=== PATIENT | female | born 1940 | race Caucasian/White ===

== ENCOUNTER → 2018-04-26 12:07 | Outpatient (CLI) | payer MEDICARE, OTHER, SELFPAY ==
--- NOTE | 2018-04-26 | DI.MG.S_ITS ---
BILATERAL DIGITAL SCREENING MAMMOGRAM 3D/2D WITH CAD: 04/26/2018 CLINICAL: Routine screening. Comparison is made to exams dated: 04/25/2017 mammogram, 04/24/2016 mammogram, and 04/21/2015 mammogram - [facility]. There are scattered fibroglandular elements in both breasts. Current study was also evaluated with a Computer Aided Detection (CAD) system. There are benign vascular calcifications in both breasts. No significant masses, calcifications, or other findings are seen in either breast. There has been no significant interval change. IMPRESSION: BENIGN There is no mammographic evidence of malignancy. A 1 year screening mammogram is recommended. This exam was interpreted at Station ID: [id number]. NOTE: For mammograms, a report in lay terms will be sent to the patient. Approximately 15% of breast malignancies will not be visualized mammographically. In the management of a palpable breast mass, a negative mammogram must not discourage biopsy of a clinically suspicious lesion. Electronically Signed By: Ceci chandra/anthony:04/26/2018 15:03:49 letter sent: Normal Exam ACR BI-RADS Category 2: Benign Finding(s) 3342F
== END ==
PROVIDERS: Family Provider Family Medicine; PCP Family Medicine; Visit Provider Family Medicine
DX: Z12.31 Encounter for screening mammogram for malignant neoplasm of breast (principal)
CPT/HCPCS: 77063; 77067

== ENCOUNTER 2018-08-27 15:33 | Emergency (ER) | payer MEDICARE, OTHER, SELFPAY ==
--- NOTE | 2018-08-27 | DI.RAD.S_ITS ---
PROCEDURE: XR ANKLE RT MIN 3V INDICATIONS: FALL ANKLE PAIN TECHNIQUE: 3 views of the ankle were acquired. COMPARISON: [facility], , XR FOOT RT MIN 3V, 08/27/2018, 16:12. FINDINGS: Bones: There is a non-displaced fracture involving the distal fibular tip. No dislocations. Ankle mortise is normally aligned. No suspicious bony lesions. Soft tissues: No tibiotalar joint effusion. Achilles tendon appears normal. Soft tissue swelling over the lateral malleolus. Atherosclerotic calcification is noted. IMPRESSION: Nondisplaced fibular tip fracture. Dictated by: Jessie Heaton M.D. on 08/27/2018 at 17:07 Approved by: Jessie Heaton M.D. on 08/27/2018 at 17:08
[2018-08-27 15:39] VITALS: BP 152/78; PULSE 62; RESP 20; TEMP 36.4; O2SAT 95; BMI 28.2
--- NOTE | 2018-08-27 15:54 | DI.RAD.S_ITS ---
PROCEDURE: XR FOOT RT MIN 3V INDICATIONS: tripped and fell TECHNIQUE: 3 views of the foot were acquired. COMPARISON: [facility], CR, XR ANKLE RT MIN 3V, 08/27/2018, 16:12. FINDINGS: Bones: No fractures or dislocations. No suspicious bony lesions. Mild degenerative joint disease is present involving the first tarsometatarsal joint and moderate portal interphalangeal joints. Soft tissues: No tibiotalar joint effusion. Achilles tendon appears normal. Vascular calcifications consistent with atherosclerosis. IMPRESSION: No fracture or dislocation. Dictated by: Jessie Heaton M.D. on 08/27/2018 at 17:05 Transcribed by: FREDERIC on 08/27/2018 at 17:07 Approved by: Jessie Heaton M.D. on 08/27/2018 at 17:45
[2018-08-27 18:28] VITALS: PULSE 88
--- NOTE | 2018-08-27 18:33 | DI.RAD.S_ITS ---
PROCEDURE: XR KNEE LT 3V INDICATIONS: fall with knee pain TECHNIQUE: 3 views of the knee were acquired. COMPARISON: None. FINDINGS: Bones: No fractures or dislocations. No suspicious bony lesions. Soft tissues: No joint effusion. Vascular calcifications are noted. Anterior left knee soft tissue swelling noted. IMPRESSION: No acute fracture or dislocation of the left knee. Consider followup radiographs in 7-10 days if there is continued clinical concern. Dictated by: Roshan Crocker M.D. on 08/27/2018 at 19:54 Approved by: Roshan Crocker M.D. on 08/27/2018 at 19:56
[2018-08-27] MEDS: TRAMADOL 50 MG TABLET PO (18:45)
--- NOTE | 2018-08-27 19:44 | ED_ITS ---
HPI - Extremity Injury (Lower) <TONYA Arteaga - Last Filed: 08/27/18 22:23> General Chief Complaint: Extremity Injury, Lower Stated Complaint: LEFT KNEE, RT ANKLE PAIN S/P FALL Time Seen by Provider: 08/27/18 18:25 Source: patient and family Mode of arrival: ambulatory Limitations: no limitations History of Present Illness HPI Narrative: Patient is an 78-year-old female with history of hypertension hyperlipidemia and chronic kidney disease who presents with ankle pain and knee pain. She states she took a hard step and felt a crack in her right ankle and then set forward on her left knee. She denies hitting her head neck or back pain. She denies falling, but complains of the crack in her ankle when she took a step. She is not sure when her last tetanus was and complains of an abrasion on her left knee. She denies hitting her head, nausea, vomiting, diarrhea, chest pain or shortness of breath or abdominal pain. She denies any hip pain. Related Data Home Medications Medication Instructions Recorded Confirmed CALCIUM CARBONATE/VITAMIN D3 1 tab PO Q DAY #0 08/14/11 04/23/18 (Calcium 600 + Vit D Tablet) Previous Rx's Medication Instructions Recorded atorvastatin [Lipitor] 20 mg PO HS #90 tab 10/31/17 warfarin [Jantoven] 0 PO SEE INSTRUCTIONS #60 tab 11/06/17 nitrofurantoin macrocrystal 50 mg 50 mg PO QDAY #90 cap 03/26/18 capsule lisinopril 10 mg tablet 10 mg PO Q DAY #90 tab 07/29/18 tramadol 50 mg PO Q4-6H PRN #10 tab 08/27/18 Allergies Allergy/AdvReac Type Severity Reaction Status Date / Time Sulfa (Sulfonamide Allergy Mild RASH Verified 08/27/18 15:43 Antibiotics) [SULFA (SULFONAMIDE ANTIBIOTICS)] Review of Systems <TONYA Arteaga - Last Filed: 08/27/18 22:23> Review of Systems GENERAL: Denies chills, fatigue, malaise, fever, sweats. HEENT: Denies sinus pain, ear pain, sore throat, difficulty swallowing, dizziness. RESPIRATORY: Denies dyspnea, cough, wheezing, hemoptysis, sputum. CARDIOVASCULAR: Denies chest pain, palpitations, orthopnea, edema, GASTROINTESTINAL: Denies nausea, vomiting, abdominal pain, diarrhea, constipation, melena. : Denies dysuria, frequency, incontinence, hematuria, urinary retention. MUSCULOSKELETAL: See HPI SKIN: See HPI NEUROLOGIC: Denies weakness, headache, numbness, change in speech, confusion, seizures, incoordination. PSYCHIATRIC: No concerning psychosocial issues. 12 point review of systems is negative except for those stated above Exam <JEN ArteagaBC - Last Filed: 08/27/18 22:23> Narrative Exam Narrative: GENERAL: This is a well-nourished, well-developed patient, in mild distress. HEAD: Atraumatic. Normocephalic. No temporal or scalp tenderness. EYES: Pupils equal round and reactive. Extraocular motions intact. No scleral icterus. No injection or drainage. ENT: Nose without bleeding, purulent drainage or septal hematoma. Throat without erythema, tonsillar hypertrophy or exudate. Uvula midline. Airway patent. NECK: Trachea midline. No JVD or lymphadenopathy. Supple, nontender, no meningeal signs. CARDIOVASCULAR: Regular rate and rhythm without murmurs, gallops, or rubs. RESPIRATORY: Clear to auscultation. Breath sounds equal bilaterally. No wheezes , rales, or rhonchi. GASTROINTESTINAL: Abdomen soft, non-tender, nondistended. No hepato-splenomegaly , or palpable masses. No guarding. EXTREMITIES: Pain to palpation noted right ankle. Positive pedal pulses right foot. No noted edema erythema or ecchymosis right ankle. Decreased flexion and extension supination and pronation of the right foot. Pain to palpation left knee generalized. Positive pedal pulses left foot. BACK: Nontender without deformity or crepitance. No flank tenderness. NEURO: AOx3. SKIN: A 3 cm abrasion noted patella of left knee. Ecchymosis surrounding abrasion. No noted abrasion, laceration ecchymosis or edema noted right ankle. Initial Vital Signs Initial Vital Signs: Vital Signs Temperature 97.5 F L 08/27/18 15:39 Pulse Rate 62 08/27/18 15:39 Respiratory Rate 20 08/27/18 15:39 Blood Pressure 152/78 H 08/27/18 15:39 Pulse Oximetry 95 08/27/18 15:39 <Mary Nicole DO - Last Filed: 08/28/18 03:34> Initial Vital Signs Initial Vital Signs: Vital Signs Temperature 97.5 F L 08/27/18 15:39 Pulse Rate 62 08/27/18 15:39 Respiratory Rate 20 08/27/18 15:39 Blood Pressure 152/78 H 08/27/18 15:39 Pulse Oximetry 95 08/27/18 15:39 Course <TONYA Arteaga - Last Filed: 08/27/18 22:23> Orders Ordered: Discontinued Medications Cyclobenzaprine HCl (Flexeril) 10 mg PO NOW ONE Stop: 08/27/18 20:22 Last Admin: 08/27/18 21:03 Dose: 10 mg Diphtheria/Tetanus/Acell Pertussis (Adacel) 0.5 ml IM .ONCE ONE Stop: 08/27/18 21:05 Last Admin: 08/27/18 21:05 Dose: 0.5 ml Tramadol HCl (Ultram) 50 mg PO NOW ONE Stop: 08/27/18 18:34 Last Admin: 08/27/18 18:45 Dose: 50 mg Vital Signs - 8 hr 08/27/18 21:09 Pulse Rate 70 Respiratory Rate 17 Blood Pressure [Right Arm] 124/78 Pulse Oximetry 99 <Mary Nicole DO - Last Filed: 08/28/18 03:34> Orders Ordered: Discontinued Medications Cyclobenzaprine HCl (Flexeril) 10 mg PO NOW ONE Stop: 08/27/18 20:22 Last Admin: 08/27/18 21:03 Dose: 10 mg Diphtheria/Tetanus/Acell Pertussis (Adacel) 0.5 ml IM .ONCE ONE Stop: 08/27/18 21:05 Last Admin: 08/27/18 21:05 Dose: 0.5 ml Tramadol HCl (Ultram) 50 mg PO NOW ONE Stop: 08/27/18 18:34 Last Admin: 08/27/18 18:45 Dose: 50 mg Vital Signs - 8 hr 08/27/18 21:09 Pulse Rate 70 Respiratory Rate 17 Blood Pressure [Right Arm] 124/78 Pulse Oximetry 99 MDM - Extremity Injury (Lower) <TONYA Arteaga - Last Filed: 08/27/18 22:23> Imaging Data right ankle xray : Radiologist's impression: Chart Viewer Diagnostics DATE TYPE STATUS AUTHOR Hx 08/27/18 18:33 ObiRoshan 08/27/18 15:54 Sherlyn Heaton 08/27/18 00:00 Sherlyn Heaton 04/26/18 00:00 Ceci Andre Nancy N 78, F0 1940 DEP ER, ED - Main ED: [place] 167.64cm 79.379kg BSA: 1.89m? BMI: 28.2kg/m? Extremity Injury, Lower Search Chart NF - Not included in interaction checking Sulfa (Sulfonamide Antibiotics) (SULFA (SULFONAMIDE ANTIBIOTICS)) RASH ONSET 08/14/11 08/14/11 03/05/13 09/13/16 09/13/16 Today 21:[address] [address] XRay Report Signed Patient: Radha Plaza [facility]#: [id number] : 8Acct:[id number] Age/Sex: 78 / FDate of Service: 08/27/18 Loc: ED Accession Number: [id number] Procedure: XR ankle RT min 3V Ordering Provider: FARIBA Plaza PROCEDURE: XR ANKLE RT MIN 3V INDICATIONS: FALL ANKLE PAIN TECHNIQUE: 3 views of the ankle were acquired. [facility] 08/[facility]/2018, 16:12. FINDINGS: Bones: There is a non-displaced fracture involving the distal fibular tip. No dislocations. Ankle mortise is normally aligned. No suspicious bony lesions. Soft tissues: No tibiotalar joint effusion. Achilles tendon appears normal. Soft tissue swelling over the lateral malleolus. Atherosclerotic calcification is noted. IMPRESSION: Nondisplaced fibular tip fracture. Dictated by: Jessie Heaton M.D. on 08/27/2018 at 17:07 Approved by: Jessie Heaton M.D. on 08/27/2018 at 17:08 right foot xray : Radiologist's impression: [address] [address] XRay Report Signed Patient: Radha Plaza [facility]#: [id number] : 8Acct:[id number] Age/Sex: 78 / FDate of Service: 08/27/18 Loc: ED Accession Number: [id number] Procedure: XR foot RT min 3V Ordering Provider: Mary MataP-BC PROCEDURE: XR FOOT RT MIN 3V INDICATIONS: tripped and fell TECHNIQUE: 3 views of the foot were acquired. COMPARISON: [facility], CR, XR ANKLE RT MIN 3V, 08/27/2018, 16:12. FINDINGS: Bones: No fractures or dislocations. No suspicious bony lesions. Mild degenerative joint disease is present involving the first tarsometatarsal joint and moderate portal interphalangeal joints. Soft tissues: No tibiotalar joint effusion. Achilles tendon appears normal. Vascular calcifications consistent with atherosclerosis. IMPRESSION: No fracture or dislocation. Dictated by: Jessie Heaton M.D. on 08/27/2018 at 17:05 Transcribed by: FREDERIC on 08/27/2018 at 17:07 Approved by: Jessie Heaton M.D. on 08/27/2018 at 17:45 left knee xray: Radiologist's impression: Radha Plaza - Patient Chart Chart Viewer Diagnostics DATE TYPE STATUS AUTHOR Hx 08/27/18 18:33 Obi,Edward 08/27/18 15:54 Sherlyn Heaton 08/27/18 00:00 Sherlyn Heaton 04/26/18 00:00 Ceci AndreRadha Glenn 78, F0 1940 DEP ER, ED - Main ED: [place] 167.64cm 79.379kg BSA: 1.89m? BMI: 28.2kg/m? Extremity Injury, Lower Search Chart NF - Not included in interaction checking Sulfa (Sulfonamide Antibiotics) (SULFA (SULFONAMIDE ANTIBIOTICS)) RASH ONSET 08/14/11 08/14/11 03/05/13 09/13/16 09/13/16 Today 21:[address] [address] XRay Report Signed Patient: Elba Plazacy [facility]#: [id number] : 8Acct:[id number] Age/Sex: 78 / FDate of Service: 08/27/18 Loc: ED Accession Number: [id number] Procedure: XR knee LT 3V Ordering Provider: Mary Mata [employer]-BC PROCEDURE: XR KNEE LT 3V INDICATIONS: fall with knee pain TECHNIQUE: 3 views of the knee were acquired. COMPARISON: None. FINDINGS: Bones: No fractures or dislocations. No suspicious bony lesions. Soft tissues: No joint effusion. Vascular calcifications are noted. Anterior left knee soft tissue swelling noted. IMPRESSION: No acute fracture or dislocation of the left knee. Consider followup radiographs in 7-10 days if there is continued clinical concern. Dictated by: Roshan Crocker M.D. on 08/27/2018 at 19:54 Approved by: Roshan Crocker M.D. on 08/27/2018 at 19:56 [facility] Narrative Medical decision making narrative: Patient is an 78-year-old female who presents after taking have a step with her right foot feeling a crack and immediate ankle pain. She immediately denied syncope or falling in a matter that hurt her head, but states that she had ankle pain with a step and said herself down on her knee. She states she also has pain on her left knee as she states that down on her left knee immediately. X-rays show a distal fibular fracture. Given her age and fall risk, she was placed in a walking boot as well as a walker. I felt as though crutches would be too much of an increased fall risk for this patient. Her Tdap was updated. She is given tramadol for pain in the emergency department. She was able to ambulate well around the department prior to discharge. I gave her contact information for Orthopedics. I discussed at length use of pain medication, rest ice compression elevation. I discussed the coming back to the emergency department for any urgent concerns. She had no questions or concerns upon discharge. Discharge Plan Departure Patient Disposition: Home Clinical Impression: Fracture of distal end of fibula, Fall from ground level, Acute knee pain, Abrasion, Acute ankle pain Discharge Date/Time: 08/27/18 21:48 Interventions: ED Discharge Assessment Last Done: 08/27/18 21:48 Instructions: DI for Ankle Fracture, How To Perform RICE (Rest, Ice, Compress, Elevate), DI for Abrasion, DI for Ankle Pain, DI for Knee Pain Activity Restrictions/Additional Instructions: You did not break or fracture your knee today, unfortunately there is a fracture at the bottom of your fibula. Please wear the walking boot and follow up with [facility]. Please use rest ice compression and elevation. I have given you a small prescription of tramadol as needed for pain. Prescriptions: New tramadol 50 mg tablet 50 mg PO Q4-6H PRN (Reason: pain) Qty: 10 RF: 0 No Action CALCIUM CARBONATE/VITAMIN D3 (Calcium 600 + Vit D Tablet) 1 tab PO Q DAY Qty: 0 RF: 0 atorvastatin [Lipitor] 20 MG tablet 20 mg PO HS Qty: 90 RF: 3 warfarin [Jantoven] 5 MG tablet PO SEE INSTRUCTIONS Qty: 60 RF: 3 nitrofurantoin macrocrystal 50 mg capsule 50 mg PO QDAY Qty: 90 RF: 1 lisinopril 10 mg tablet 10 mg PO Q DAY Qty: 90 RF: 3 Referrals: [facility] [Outside] Serg Avalos MD [Primary Care Provider] - <Mary Nicole DO - Last Filed: 08/28/18 03:34> Cosign ED Attending Coshenriature Attestation: I was immediately available in the department for consultation. This documentation has been reviewed and I agree with assessment and plan. Supervised by Mary Nicole DO
[2018-08-27] MEDS: CYCLOBENZAPRINE 10 MG TABLET PO (21:03)
[2018-08-27] MEDS: TET,DIPH,PERTUSS(ACELL),VAC/PF 0.5 ML SYRINGE IM (21:05)
[2018-08-27 21:09] VITALS: BP 124/78; PULSE 70; RESP 17; O2SAT 99
== END 2018-08-27 21:48 | disposition home or self-care (01) ==
PROVIDERS: Emergency Provider Nurse Practitioner Family; Family Provider Family Medicine; PCP Family Medicine
DX: S82.821A Torus fracture of lower end of right fibula, initial encounter for closed fracture (principal); M25.561 Pain in right knee; W01.0XXA Fall on same level from slipping, tripping and stumbling without subsequent striking against object, initial encounter
CPT/HCPCS: 29580; 73562; 73610; 73630; 90471; 99283; 90715

== ENCOUNTER → 2019-03-04 15:33 | Outpatient (CLI) | payer MEDICARE, OTHER, SELFPAY ==
[2019-03-04 15:52] LABS: Appearance Urine UA SL CLOUDY; Bilirubin Urine UA NEGATIVE (NEGATIVE); Color Urine UA YELLOW; Glucose Urine UA NEGATIVE (Negative); Ketones Urine UA NEGATIVE (NEGATIVE); Leukocyte Esterase Urine UA 1+ (NEGATIVE); Nitrite Urine UA NEGATIVE (Negative); Occult Blood Urine UA NEGATIVE (Negative); Protein Urine UA NEGATIVE (Negative); Urobilinogen Urine UA 0.2 E.U./dL (0.2); pH Urine UA 5.5 (4.5-8.0)
[2019-03-04 15:57] LABS: RBC Urine None Seen (0-5/HPF)
[2019-03-04 16:04] LABS: Bacteria Urine Occasional (0-1); Squamous Epithelial Cell Urine 0-1 /HPF (0-5/HPF); Transitional Epi Cells Urine 1-5/HPF (0-5/HPF); WBC Urine 5-10/HPF (0-5/HPF)
[2019-03-04 16:05] LABS: Culture Indicated Urine Specimen Cultured
== END ==
PROVIDERS: PCP Family Medicine; Visit Provider Family Medicine
DX: R30.0 Dysuria (principal)
CPT/HCPCS: 81003; 81015; 87077; 87086; 87186

== ENCOUNTER → 2019-03-20 08:37 | Outpatient (CLI) | payer MEDICARE, OTHER, SELFPAY ==
[2019-03-20 08:43] LABS: RBC Urine None Seen (0-5/HPF)
[2019-03-20 09:21] LABS: Appearance Urine UA CLEAR; Bilirubin Urine UA NEGATIVE (NEGATIVE); Color Urine UA YELLOW; Glucose Urine UA NEGATIVE (Negative); Ketones Urine UA NEGATIVE (NEGATIVE); Leukocyte Esterase Urine UA 1+ (NEGATIVE); Nitrite Urine UA NEGATIVE (Negative); Occult Blood Urine UA NEGATIVE (Negative); Protein Urine UA NEGATIVE (Negative); Specific Gravity Urine UA 1.025 (1.000-1.035); Urobilinogen Urine UA 0.2 E.U./dL (0.2)
[2019-03-20 09:36] LABS: Add Manual Diff / Slide Review NO; Basophils Absolute Auto 0 /uL (0-100); Basophils Percent Auto 0.7 % (0-2); Eosinophils Absolute Auto 200 /uL (0-450); Eosinophils Percent Auto 4.4 % (2-4); Hemoglobin 13.7 g/dL (12.0-16.0); Lymphocytes Absolute Auto 1200 /uL (1100-4500); Lymphocytes Percent Auto 25.3 % (25-40); Mean Corpuscular HGB Conc 34.3 % (30-36); Mean Corpuscular Hemoglobin 30.4 PG (26-34); Mean Corpuscular Volume 88.6 fL (80-100); Monocytes Absolute Auto 700 /uL (0-900); Monocytes Percent Auto 14.5 % (3-14); Neutrophils Absolute Auto 2700 /uL (1500-7000); Neutrophils Percent Auto 55.1 % (50-75); Platelet Count 239 X10^3/uL (150-400); Red Blood Cell Count 4.52 X10^6/uL (4.0-5.2); Red Cell Distribution Width 13.4 % (11.6-14.8); White Blood Cell Count 4.9 X10^3/uL (4.5-11.0)
[2019-03-20 09:37] LABS: Bacteria Urine Few (2-10); Culture Indicated Urine Specimen Cultured; Squamous Epithelial Cell Urine 1-5 /HPF (0-5/HPF); WBC Urine 1-5/HPF (0-5/HPF)
[2019-03-20 09:49] LABS: Alanine Aminotransferase 22 IU/L (9-52); Albumin 3.9 g/dL (3.5-5.0); Albumin Globulin Ratio 1.4 (1.0-2.8); Alkaline Phosphatase 76 U/L (38-126); Aspartate Aminotransferase 28 IU/L (14-36); BUN Creatinine Ratio 18.3 (6-22); Bilirubin Total 0.6 mg/dL (0.2-1.3); Blood Urea Nitrogen 22 mg/dL (7-17); Calcium 9.4 mg/dL (8.4-10.2); Carbon Dioxide 29 mmol/L (22-32); Chloride 106 mmol/L (98-107); Cholesterol 182 mg/dL (140-199); Estimated Glomerular Filt Rate 43.1 mL/min (>60); Globulin 2.8 g/dL (1.7-4.1); Glucose 96 mg/dL (80-110); HDL Cholesterol 55 mg/dL (40-60); HEMOLYSIS < 15 (0-50); LDL Cholesterol Calculated 109 mg/dL (<100); Potassium 4.3 mmol/L (3.4-5.1); Sodium 141 mmol/L (137-145); Total Protein 6.7 g/dL (6.3-8.2); Triglycerides 88 mg/dL (35-150)
[2019-03-20 10:47] LABS: Thyroid Stimulating Hormone 2.21 uIU/mL (0.47-4.68)
== END ==
PROVIDERS: PCP Family Medicine; Visit Provider Family Medicine
DX: E78.5 Hyperlipidemia, unspecified (principal); I12.9 Hypertensive chronic kidney disease with stage 1 through stage 4 chronic kidney disease, or unspecified chronic kidney disease; N18.9 Chronic kidney disease, unspecified; R30.0 Dysuria; Z13.29 Encounter for screening for other suspected endocrine disorder; E66.9 Obesity, unspecified
CPT/HCPCS: 36415; 80053; 80061; 81001; 84443; 85025; 87086

== ENCOUNTER → 2019-03-27 11:26 | Outpatient (CLI) | payer MEDICARE, OTHER, SELFPAY ==
--- NOTE | 2019-03-27 11:29 | DI.RAD.S_ITS ---
PROCEDURE: XR SHOULDER LT MIN 2V INDICATIONS: rotator cuff tendonitis TECHNIQUE: 3 views of the shoulder were acquired. COMPARISON: None. FINDINGS: Bones: No fractures or dislocations. No suspicious bony lesions. Visualized ribs appear intact. There is mild acromioclavicular joint degeneration. Soft tissues: No suspicious soft tissue calcifications. IMPRESSION: Mild degenerative joint disease. Dictated by: Jessie Heaton M.D. on 03/27/2019 at 16:56 Approved by: Jessie Heaton M.D. on 03/27/2019 at 16:57
== END ==
PROVIDERS: PCP Family Medicine; Visit Provider Family Medicine
DX: M75.102 Unspecified rotator cuff tear or rupture of left shoulder, not specified as traumatic (principal); M19.012 Primary osteoarthritis, left shoulder
CPT/HCPCS: 73030

== ENCOUNTER → 2019-04-28 12:22 | Outpatient (CLI) | payer MEDICARE, OTHER, SELFPAY ==
--- NOTE | 2019-04-28 | DI.MG.S_ITS ---
BILATERAL DIGITAL SCREENING MAMMOGRAM 3D/2D WITH CAD: 04/28/2019 CLINICAL: Routine screening. Comparison is made to exams dated: 04/26/2018 mammogram, 04/25/2017 mammogram, and 04/24/2016 mammogram - [facility]. There are scattered fibroglandular elements in both breasts. Current study was also evaluated with a Computer Aided Detection (CAD) system. There are benign vascular calcifications in both breasts. No significant masses, calcifications, or other findings are seen in either breast. There has been no significant interval change. IMPRESSION: There is no mammographic evidence of malignancy. A 1 year screening mammogram is recommended. This exam was interpreted at Station ID: [id number]. NOTE: For mammograms, a report in lay terms will be sent to the patient. Approximately 15% of breast malignancies will not be visualized mammographically. In the management of a palpable breast mass, a negative mammogram must not discourage biopsy of a clinically suspicious lesion. Electronically Signed By: Dong florez/anthony:04/28/2019 19:14:57 letter sent: Normal Exam ACR BI-RADS Category 2: Benign Finding(s) 3342F
== END ==
PROVIDERS: PCP Family Medicine; Visit Provider Family Medicine
DX: Z12.31 Encounter for screening mammogram for malignant neoplasm of breast (principal); M85.852 Other specified disorders of bone density and structure, left thigh; Z78.0 Asymptomatic menopausal state
CPT/HCPCS: 77063; 77067; 77080

== ENCOUNTER → 2019-07-31 09:49 | Outpatient (CLI) | payer MEDICARE, OTHER, SELFPAY ==
--- NOTE | 2019-07-31 09:51 | DI.US.S_ITS ---
PROCEDURE: US ABDOMEN COMPLETE INDICATIONS: ABDOMINAL PAIN, NAUSEA TECHNIQUE: Real-time scanning was performed of the abdominal and retroperitoneal organs, with image documentation. COMPARISON: None. FINDINGS: Liver: Liver is normal in size and homogeneous in echotexture. Complex left hepatic lobe cyst measuring 6.8 cm. Solid, heterogeneous mass with central calcifications within the right hepatic lobe measuring 2.4 x 2.8 x 2.5 cm. No definitive vascularity identified. Gallbladder: 4 mm gallbladder polyp. Gallbladder otherwise normal. Biliary ducts: Intrahepatic bile ducts are non-dilated. Extrahepatic bile duct caliber measures 5.0 mm. Normal is 6-7 mm or less in diameter, or 10 mm or less post-cholecystectomy. Pancreas: Not well-visualized. Spleen: Spleen is normal in size and homogeneous in echotexture. Kidneys: Right kidney measures 8.9 cm long; left kidney measures 10.9 cm long. No hydronephrosis or nephrolithiasis. No solid masses. Aorta: Visualized aorta is normal in caliber at less than 3 cm. Iliacs: Proximal common iliac arteries are normal in caliber at less than 2.5 cm. IVC: Intrahepatic inferior vena cava is patent. Miscellaneous: No free abdominal fluid. IMPRESSION: 1. Solid right hepatic lobe liver mass and underlying neoplasm cannot be excluded. Recommend hepatic protocol MRI for further assessment. 2. Large complex left hepatic lobe cyst. 3. 4 mm gallbladder polyp. Dictated by: Matt CHAN Interpreted: Katie Park MD on 07/31/2019 at 12:24 Approved by: Katie Park M.D. on 07/31/2019 at 14:02
== END ==
PROVIDERS: PCP Family Medicine; Visit Provider Family Medicine
DX: R10.9 Unspecified abdominal pain (principal); R11.0 Nausea; K76.9 Liver disease, unspecified; K76.89 Other specified diseases of liver; K82.4 Cholesterolosis of gallbladder
CPT/HCPCS: 76700

== ENCOUNTER → 2019-08-12 13:39 | Outpatient (CLI) | payer MEDICARE, OTHER, SELFPAY ==
--- NOTE | 2019-08-12 13:41 | DI.MRI.S_ITS ---
PROCEDURE: MR ABDOMEN WO/W CON INDICATIONS: ABnormal US/radiologist recommendations TECHNIQUE: Coronal HASTE, axial 2D FLASH in- and [id number]; axial breath-hold T2 FSE. Dynamic axial VIBE during the administration of contrast; post-contrast coronal VIBE or 2D FLASH with fat saturation from the hepatic dome to the iliac crests. Optional diffusion weighted imaging and ADC may be performed. COMPARISON: [facility], [place], US ABDOMEN COMPLETE, 07/31/2019, 9:57. FINDINGS: Image quality: Excellent. Lung bases: No basal pleural effusions. Heart size is normal. Solid organs: Liver is normal in size. There is a 2 cm mass in the posterior segment of the right hepatic lobe, which has hypointense T1 and hyperintense T2 signal with subtle peripheral enhancement but no complete filling-in of contrast on delayed enhanced images, suggesting an atypical hemangioma. There are several hepatic cysts in the left hepatic lobe. The largest one appears complex measuring 5.4 x 5.9 cm and demonstrating mural nodularity and enhancement. A smaller 1.5 cm cyst is seen just lateral to the large complex cyst. Gallbladder is contracted. Biliary system is non dilated. Pancreas is normal in morphology. Spleen is normal in size and enhancement. No adrenal nodules. Both kidneys demonstrate normal size and enhancement, without hydronephrosis. Nodes and vessels: No retroperitoneal or mesenteric adenopathy by size criteria. Aorta and inferior vena cava are normal in size. Bowel and peritoneum: Unenhanced bowel loops are normal in caliber. No free fluid. Bones and soft tissues: No ventral hernias. Bone marrow is normal in overall signal. IMPRESSION: 1. A 2 cm mass in the posterior segment of the right hepatic lobe demonstrates hypointense T1 and hyperintense T2 signal with subtle peripheral enhancement on delayed enhanced images, suggesting an atypical hemangioma. Alternatively, this could represent a complex cyst. A neoplastic process is felt less likely but not entirely excluded. Because of this uncertain, a nuclear medicine tagged red cell scan may be helpful. Alternatively short term followup imaging may be obtained in 3 months. 2. Multiple hepatic cysts. The largest cyst is complex and within the left hepatic lobe. Dictated by: Jessie Heaton M.D. on 08/12/2019 at 17:40 Approved by: Jessie Heaton M.D. on 08/12/2019 at 18:51
== END ==
PROVIDERS: PCP Family Medicine; Visit Provider Family Medicine
DX: R10.9 Unspecified abdominal pain (principal); R93.5 Abnormal findings on diagnostic imaging of other abdominal regions, including retroperitoneum; K76.89 Other specified diseases of liver; R16.0 Hepatomegaly, not elsewhere classified
CPT/HCPCS: 74183; A9579

== ENCOUNTER → 2020-02-19 13:54 | Outpatient (CLI) | payer MEDICARE, OTHER, SELFPAY ==
--- NOTE | 2020-02-19 13:56 | DI.MRI.S_ITS ---
PROCEDURE: MR ABDOMEN WO/W CON INDICATIONS: F/U MASS AND CYSTS TECHNIQUE: Coronal HASTE, axial 2D FLASH in- and [id number]; axial breath-hold T2 FSE. Dynamic axial VIBE during the administration of contrast; post-contrast coronal VIBE or 2D FLASH with fat saturation from the hepatic dome to the iliac crests. Optional diffusion weighted imaging and ADC may be performed. COMPARISON: [facility], US, US ABDOMEN COMPLETE, 07/31/2019, 9:57. [facility], MR, MR ABDOMEN WO/W CON, 08/12/2019, 13:52. FINDINGS: Image quality: There is mild motion artifact. Lung bases: No basal pleural effusions. Heart size is normal. Solid organs: Within segment 7 of the posterior right hepatic lobe, there is a T1 hypointense and slightly heterogeneously T2 hyperintense solid triangular shaped region redemonstrated measuring 2.3 x 2.3 x 3.0 cm. This appears stable in size and morphology compared to the prior study. Following contrast administration, there is no definite internal enhancement. There is a large septated cyst anteriorly within the left hepatic lobe involving segments 2 and 3 measuring up to 6.2 x 5.2 cm in transverse dimension. There is a smaller cyst within segment 4B of the left hepatic lobe measuring up to 1.9 x 1.5 cm in transverse dimension. This also demonstrates thin internal septations. The gallbladder is partially distended without gallstones or wall thickening. Biliary system is non dilated. Posteriorly within the pancreatic head, there is a small oval cyst measuring approximately 0.9 cm which appears similar to the prior study and likely represents a small side branch IPMN. Within the body of the pancreas, there is also a small oval cyst measuring approximately 0.6 cm which appears unchanged and also likely represents a small side branch IPMNs. Spleen is normal in size and enhancement. No adrenal nodules. Kidneys demonstrate no hydronephrosis. There are bilateral renal cysts including parapelvic cysts. Nodes and vessels: No retroperitoneal or mesenteric adenopathy by size criteria. Aorta and inferior vena cava are normal in size. Bowel and peritoneum: Visualized bowel loops are normal in caliber. No free fluid. Bones and soft tissues: No ventral hernias. Bone marrow is normal in overall signal. IMPRESSION: 1. No interval change in size of a solid triangular-shaped region in the posterior right hepatic lobe. This demonstrates definite associated enhancement. Given the curvilinear internal echogenic region of shadowing seen on the prior ultrasound suggestive of calcification, this may represent scarring possibly from prior infection. In the absence of definite internal enhancement, a neoplasm is less likely. Recommend a followup liver protocol CT in 6 months to demonstrate stability as well as evaluate for internal calcification. 2. Left hepatic lobe cyst appears stable in size with increased internal septations. Findings likely represent sequelae of prior internal infection or hemorrhage. Dictated by: Vasyl Vides M.D. on 02/19/2020 at 16:43 Approved by: Vasyl Vides M.D. on 02/19/2020 at 16:58
== END ==
PROVIDERS: PCP Family Medicine; Referring Provider Family Medicine; Visit Provider Family Medicine
DX: R16.0 Hepatomegaly, not elsewhere classified (principal); K76.89 Other specified diseases of liver
CPT/HCPCS: 74183; A9579

== ENCOUNTER → 2020-02-27 13:17 | Outpatient (CLI) | payer MEDICARE, OTHER, SELFPAY ==
[2020-02-27 13:23] LABS: RBC Urine None Seen (0-5/HPF)
[2020-02-27 14:10] LABS: Appearance Urine UA SL CLOUDY; Bilirubin Urine UA NEGATIVE (NEGATIVE); Color Urine UA YELLOW; Glucose Urine UA NEGATIVE (Negative); Ketones Urine UA NEGATIVE (NEGATIVE); Leukocyte Esterase Urine UA 3+ (NEGATIVE); Nitrite Urine UA POSITIVE (Negative); Occult Blood Urine UA TRACE-LYSED (Negative); Protein Urine UA NEGATIVE (Negative); Urobilinogen Urine UA 0.2 E.U./dL (0.2)
[2020-02-27 14:15] LABS: pH Urine UA 6.5 (4.5-8.0)
[2020-02-27 14:19] LABS: Bacteria Urine Many (>30); Culture Indicated Urine Specimen Cultured; WBC Urine >100/HPF (0-5/HPF)
== END ==
PROVIDERS: PCP Family Medicine; Referring Provider Family Medicine; Visit Provider Family Medicine
DX: R30.0 Dysuria (principal)
CPT/HCPCS: 81001; 87077; 87086; 87186

== ENCOUNTER → 2020-04-05 10:37 | Outpatient (CLI) | payer MEDICARE, OTHER, SELFPAY | PROVIDERS: PCP Family Medicine; Visit Provider Registered Nurse | DX: R30.0 Dysuria (principal) | CPT/HCPCS: 87077; 87086; 87186 ==

== ENCOUNTER → 2020-04-15 16:04 | Outpatient (ROUT) | payer MEDICARE, OTHER, SELFPAY ==
[2020-04-15 16:16] LABS: Appearance Urine UA SL CLOUDY; Bilirubin Urine UA NEGATIVE (NEGATIVE); Ketones Urine UA NEGATIVE (NEGATIVE); Leukocyte Esterase Urine UA 3+ (NEGATIVE); Nitrite Urine UA POSITIVE (Negative); Occult Blood Urine UA 1+ (Negative); Protein Urine UA 1+ (Negative)
[2020-04-15 16:28] LABS: Color Urine UA ORANGE
[2020-04-15 16:29] LABS: Bacteria Urine Many (>30); Culture Indicated Urine Specimen Cultured; RBC Urine 5-10/HPF (0-5/HPF); Squamous Epithelial Cell Urine 1-5 /HPF (0-5/HPF); WBC Urine >100/HPF (0-5/HPF)
== END ==
PROVIDERS: PCP Family Medicine; Visit Provider Family Medicine
DX: R30.0 Dysuria (principal); R35.0 Frequency of micturition; R39.15 Urgency of urination
CPT/HCPCS: 81001; 87077; 87086; 87186

== ENCOUNTER → 2020-05-12 10:40 | Outpatient (CLI) | payer MEDICARE, OTHER, SELFPAY ==
--- NOTE | 2020-05-12 | DI.MG.S_ITS ---
BILATERAL DIGITAL SCREENING MAMMOGRAM 3D/2D WITH CAD: 05/12/2020 CLINICAL: Routine screening. Comparison is made to exams dated: 04/28/2019 mammogram, 04/26/2018 mammogram, and 04/25/2017 mammogram - [facility]. There are scattered fibroglandular elements in both breasts. Current study was also evaluated with a Computer Aided Detection (CAD) system. There are benign vascular calcifications in both breasts. No significant masses, calcifications, or other findings are seen in either breast. There has been no significant interval change. IMPRESSION: There is no mammographic evidence of malignancy. A 1 year screening mammogram is recommended. This exam was interpreted at Station ID: [id number]. NOTE: For mammograms, a report in lay terms will be sent to the patient. Approximately 15% of breast malignancies will not be visualized mammographically. In the management of a palpable breast mass, a negative mammogram must not discourage biopsy of a clinically suspicious lesion. Electronically Signed By: Ceci chandra/anthony:05/12/2020 11:36:06 letter sent: Normal Exam ACR BI-RADS Category 2: Benign Finding(s) 3342F
== END ==
PROVIDERS: PCP Family Medicine; Referring Provider Family Medicine; Visit Provider Family Medicine
DX: Z12.31 Encounter for screening mammogram for malignant neoplasm of breast (principal)
CPT/HCPCS: 77063; 77067

== ENCOUNTER → 2020-09-01 09:44 | Outpatient (CLI) | payer MEDICARE, OTHER, SELFPAY | PROVIDERS: PCP Family Medicine; Visit Provider Family Medicine | DX: R30.0 Dysuria (principal); M25.552 Pain in left hip | CPT/HCPCS: 87086 ==

== ENCOUNTER → 2020-09-01 10:23 | Outpatient (CLI) | payer MEDICARE, OTHER, SELFPAY ==
--- NOTE | 2020-09-01 10:25 | DI.RAD.S_ITS ---
PROCEDURE: XR HIP W PEL IF DONE LT 2V INDICATIONS: left hip pain TECHNIQUE: AP pelvis with lateral view(s) of the left hip(s). COMPARISON: None. FINDINGS: Bones: No fractures or dislocations. Pelvic ring appears intact. No suspicious bony lesions. Moderate symmetric degenerative change of the hips. This is demonstrable by joint space narrowing, acetabular roof sclerosis, and small osteophytes. No avascular necrosis of the left femoral head demonstrated. Soft tissues: The visualized bowel gas pattern is normal. No suspicious soft tissue calcifications. Vascular calcifications. IMPRESSION: Moderate left hip DJD. Dictated by: Sal Christian M.D. on 09/01/2020 at 11:01 Approved by: Sal Christian M.D. on 09/01/2020 at 11:03
== END ==
PROVIDERS: PCP Family Medicine; Referring Provider Family Medicine; Visit Provider Family Medicine
DX: M25.552 Pain in left hip (principal); R30.0 Dysuria; M16.12 Unilateral primary osteoarthritis, left hip
CPT/HCPCS: 73502; 87077; 87086; 87186

== ENCOUNTER → 2020-09-03 09:00 | Outpatient (CLI) | payer MEDICARE, OTHER, SELFPAY ==
[2020-09-03 09:57] LABS: Add Manual Diff / Slide Review NO; Basophils Absolute Auto 0 /uL (0-100); Basophils Percent Auto 0.5 % (0-2); Eosinophils Absolute Auto 100 /uL (0-450); Eosinophils Percent Auto 2.9 % (2-4); Hematocrit 37.6 % (36-46); Lymphocytes Absolute Auto 1400 /uL (1100-4500); Lymphocytes Percent Auto 38.4 % (25-40); Mean Corpuscular HGB Conc 34.5 % (30-36); Mean Corpuscular Hemoglobin 29.7 PG (26-34); Mean Corpuscular Volume 86.1 fL (80-100); Monocytes Absolute Auto 600 /uL (0-900); Monocytes Percent Auto 15.5 % (3-14); Neutrophils Absolute Auto 1500 /uL (1500-7000); Neutrophils Percent Auto 42.7 % (50-75); Platelet Count 241 X10^3/uL (150-400); Red Blood Cell Count 4.36 X10^6/uL (4.0-5.2); Red Cell Distribution Width 14.3 % (11.6-14.8); White Blood Cell Count 3.6 X10^3/uL (4.5-11.0)
[2020-09-03 10:09] LABS: Alanine Aminotransferase 31 IU/L (<35); Albumin 3.8 g/dL (3.5-5.0); Albumin Globulin Ratio 1.4 (1.0-2.8); Alkaline Phosphatase 89 U/L (38-126); Aspartate Aminotransferase 36 IU/L (14-36); BUN Creatinine Ratio 14.3 (6-22); Bilirubin Total 0.9 mg/dL (0.2-1.3); Blood Urea Nitrogen 15 mg/dL (7-17); Calcium 9.1 mg/dL (8.4-10.2); Carbon Dioxide 30 mmol/L (22-32); Chloride 107 mmol/L (98-107); Cholesterol 169 mg/dL (140-199); Estimated Glomerular Filt Rate 50.2 mL/min (>60); Globulin 2.7 g/dL (1.7-4.1); Glucose 108 mg/dL (80-110); HDL Cholesterol 50 mg/dL (40-60); HEMOLYSIS < 15 (0-50); LDL Cholesterol Calculated 97 mg/dL (<100); Potassium 4.2 mmol/L (3.4-5.1); Sodium 141 mmol/L (137-145); Total Protein 6.5 g/dL (6.3-8.2); Triglycerides 112 mg/dL (35-150)
[2020-09-03 10:54] LABS: TSH w/ Reflex to FT4 1.85 uIU/mL (0.47-4.68)
== END ==
PROVIDERS: PCP Family Medicine; Referring Provider Family Medicine; Visit Provider Family Medicine
DX: C25.9 Malignant neoplasm of pancreas, unspecified (principal); E78.5 Hyperlipidemia, unspecified; I10 Essential (primary) hypertension; N18.9 Chronic kidney disease, unspecified
CPT/HCPCS: 36415; 80053; 80061; 84443; 85025

== ENCOUNTER → 2020-10-12 10:52 | Outpatient (CLI) | payer MEDICARE, OTHER, SELFPAY ==
[2020-10-12 11:38] LABS: Appearance Urine UA CLOUDY; Bilirubin Urine UA NEGATIVE (NEGATIVE); Color Urine UA YELLOW; Glucose Urine UA NEGATIVE (Negative); Ketones Urine UA NEGATIVE (NEGATIVE); Leukocyte Esterase Urine UA 2+ (NEGATIVE); Nitrite Urine UA POSITIVE (Negative); Occult Blood Urine UA 1+ (Negative); Protein Urine UA TRACE (Negative); Specific Gravity Urine UA 1.025 (1.000-1.035); Urobilinogen Urine UA 0.2 E.U./dL (0.2)
[2020-10-12 12:03] LABS: Bacteria Urine Many (>30); Culture Indicated Urine Specimen Cultured; RBC Urine 5-10/HPF (0-5/HPF); Squamous Epithelial Cell Urine 1-5 /HPF (0-5/HPF); WBC Urine >100/HPF (0-5/HPF)
== END ==
PROVIDERS: PCP Family Medicine; Visit Provider Family Medicine
DX: R39.89 Other symptoms and signs involving the genitourinary system (principal)
CPT/HCPCS: 81001; 87077; 87086; 87186

== ENCOUNTER → 2021-06-25 14:52 | Outpatient (CLI) | payer MEDICARE, OTHER, SELFPAY ==
--- NOTE | 2021-06-25 14:54 | DI.MG.S_ITS ---
BILATERAL DIGITAL SCREENING MAMMOGRAM 3D/2D WITH CAD: 06/25/2021 CLINICAL: Routine screening. Comparison is made to exams dated: 05/12/2020 mammogram, 04/28/2019 mammogram, and 04/26/2018 mammogram - [facility]. There are scattered fibroglandular elements in both breasts. Current study was also evaluated with a Computer Aided Detection (CAD) system. There are benign vascular calcifications in both breasts. There are mole markers on both breasts. No significant masses, calcifications, or other findings are seen in either breast. There has been no significant interval change. IMPRESSION: BENIGN There is no mammographic evidence of malignancy. A 1 year screening mammogram is recommended. This exam was interpreted at Station ID: [id number]. NOTE: For mammograms, a report in lay terms will be sent to the patient. Approximately 15% of breast malignancies will not be visualized mammographically. In the management of a palpable breast mass, a negative mammogram must not discourage biopsy of a clinically suspicious lesion. Electronically Signed By: Chacorta Landaverde acr/anthony:06/27/2021 08:12:11 letter sent: Normal Exam ACR BI-RADS Category 2: Benign Finding(s) 3342F
== END ==
PROVIDERS: PCP Family Medicine; Referring Provider Family Medicine; Visit Provider Family Medicine
DX: Z12.31 Encounter for screening mammogram for malignant neoplasm of breast (principal)
CPT/HCPCS: 77063; 77067

== ENCOUNTER → 2021-08-26 14:37 | Outpatient (CLI) | payer MEDICARE, OTHER, SELFPAY ==
[2021-08-26] MEDS: COVID-19 VACC #3, MRNA(MOD) 50 MCG/0.25 ML VIAL IM (14:43)
== END ==
PROVIDERS: PCP Family Medicine; Visit Provider Internal Medicine
DX: Z23 Encounter for immunization (principal)
CPT/HCPCS: 0013A; 91301

== ENCOUNTER → 2021-09-26 09:50 | Outpatient (CLI) | payer MEDICARE, OTHER, SELFPAY ==
[2021-09-26 14:21] LABS: Add Manual Diff / Slide Review NO; Basophils Absolute Auto 0 /uL (0-100); Basophils Percent Auto 0.5 % (0-2); Eosinophils Absolute Auto 200 /uL (0-450); Eosinophils Percent Auto 3.5 % (2-4); Hematocrit 38.5 % (36-46); Hemoglobin 13.4 g/dL (12.0-16.0); Lymphocytes Absolute Auto 1500 /uL (1100-4500); Lymphocytes Percent Auto 33.8 % (25-40); Mean Corpuscular HGB Conc 34.8 % (30-36); Mean Corpuscular Volume 86.2 fL (80-100); Monocytes Absolute Auto 600 /uL (0-900); Monocytes Percent Auto 14.5 % (3-14); Neutrophils Absolute Auto 2100 /uL (1500-7000); Neutrophils Percent Auto 47.7 % (50-75); Platelet Count 250 X10^3/uL (150-400); Red Blood Cell Count 4.46 X10^6/uL (4.0-5.2); Red Cell Distribution Width 14.1 % (11.6-14.8); White Blood Cell Count 4.4 X10^3/uL (4.5-11.0)
[2021-09-26 15:26] LABS: Alanine Aminotransferase 28 IU/L (<35); Albumin 3.9 g/dL (3.5-5.0); Albumin Globulin Ratio 1.6 (1.0-2.8); Alkaline Phosphatase 79 U/L (38-126); Aspartate Aminotransferase 31 IU/L (14-36); BUN Creatinine Ratio 15.7 (6-22); Bilirubin Total 0.8 mg/dL (0.2-1.3); Blood Urea Nitrogen 18 mg/dL (7-17); Calcium 9.4 mg/dL (8.4-10.2); Carbon Dioxide 30 mmol/L (22-32); Chloride 108 mmol/L (98-107); Cholesterol 179 mg/dL (140-199); Estimated Glomerular Filt Rate 45.1 mL/min (>60); Globulin 2.5 g/dL (1.7-4.1); Glucose 98 mg/dL (80-110); HDL Cholesterol 60 mg/dL (40-60); HEMOLYSIS < 15 (0-50); LDL Cholesterol Calculated 98 mg/dL (<100); Potassium 4.8 mmol/L (3.4-5.1); Sodium 142 mmol/L (137-145); Total Protein 6.4 g/dL (6.3-8.2); Triglycerides 104 mg/dL (35-150)
== END ==
PROVIDERS: PCP Family Medicine; Referring Provider Family Medicine; Visit Provider Family Medicine
DX: E78.2 Mixed hyperlipidemia (principal); I10 Essential (primary) hypertension; N18.2 Chronic kidney disease, stage 2 (mild)
CPT/HCPCS: 36415; 80053; 80061; 84443; 85025

== ENCOUNTER → 2021-10-05 10:16 | Outpatient (CLI) | payer MEDICARE, OTHER, SELFPAY ==
[2021-10-06 09:13] LABS: Fecal Immunochemical Test Negative (Negative)
== END ==
PROVIDERS: PCP Family Medicine; Referring Provider Family Medicine; Visit Provider Family Medicine
DX: Z12.11 Encounter for screening for malignant neoplasm of colon (principal)
CPT/HCPCS: 82274

== ENCOUNTER → 2022-02-23 15:59 | Outpatient (CLI) | payer MEDICARE, OTHER, SELFPAY | PROVIDERS: PCP Family Medicine; Referring Provider Family Medicine; Visit Provider Family Medicine | DX: I48.91 Unspecified atrial fibrillation (principal) | CPT/HCPCS: 93242 ==

== ENCOUNTER 2022-05-06 10:25 | Emergency (ER) | payer MEDICARE, OTHER, SELFPAY ==
[2022-05-06] VITALS (11 sets, daily range): BP systolic 137–164; BP diastolic 70–85; PULSE 63–85; RESP 18–23; TEMP 36.8–37.1; O2SAT 95–98; BMI 30.8
--- NOTE | 2022-05-06 10:35 | ED_ITS ---
HPI - Headache General Chief Complaint: Fever Stated Complaint: headache chills weakness since lasn night Time Seen by Provider: 05/06/22 10:28 History of Present Illness HPI Narrative: This 82-year-old woman comes to the emergency department by private vehicle today. She says that last night she started to feel little bit poorly and was having trouble writing some checks because she had trouble seeing to write properly. She has developed a headache overnight. She believes she has had fever. No vomiting, no chest pain no shortness of breath no abdominal pain. She did feel little unsettled in her stomach this morning but after normal bowel movement that was not bloody or watery she felt a little bit better. She feels generally weak and out of sorts and feels as if she would just like to rest. She denies dysuria or URI symptoms as well. Her past history includes pancrea tic cancer, chronic kidney disease, hypertension, venous thromboembolism currently taking warfarin, diverticulosis Related Data Home Medications Medication Instructions Recorded Confirmed ascorbate calcium (vitamin C) 500 500 mg PO DAILY 07/23/19 02/23/22 mg tablet cyanocobalamin (vitamin B-12) 1,000 mcg PO DAILY 07/23/19 02/23/22 1,000 mcg capsule Previous Rx's Medication Instructions Recorded lisinopril 10 mg tablet 10 mg PO Q DAY #90 tabs 07/20/21 atorvastatin 20 mg tablet (Lipitor) 20 mg PO HS #90 tabs 09/29/21 warfarin 5 mg tablet (Jantoven) 5 mg PO SEE INSTRUCTIONS #120 tabs 09/29/21 cephalexin 500 mg capsule 500 mg PO QID #28 caps 05/06/22 Allergies Allergy/AdvReac Type Severity Reaction Status Date / Time Sulfa (Sulfonamide Allergy Mild RASH Verified 02/23/22 14:52 Antibiotics) [SULFA (SULFONAMIDE ANTIBIOTICS)] Review of Systems Review of Systems Narrative: Complete review of systems is negative other than as noted above Patient History Medical History (Updated 05/06/22 @ 14:22 by Rehan Nuno MD) Abdominal pain Actinic keratosis (~2015) Chicken pox (~1945) Class 1 obesity DVT (deep venous thrombosis) (~1996) Hearing loss (~2012) History of urinary incontinence Hyperlipidemia Hypertension Kidney stones Measles (~1946) Nausea Osteoporosis Renal failure Rubella Vision disorder Surgical History Anesthesia History of ovarian cyst Family History Brother Heart disease Father Heart disease Hypertension Mother Stroke Grandfather Heart disease Grandmother Diabetes mellitus Grandmother Diabetes mellitus Social History marital status: Smoking Status: Never smoker alcohol intake: current substance use type: does not use Smoking Status: Never smoker Substance Use Type: does not use Exam Narrative Exam Narrative: GENERAL: Alert, cooperative and in no distress. HEAD: Atraumatic. Normocephalic. EYES: Sclera are clear without icterus. Extraocular movements are full. ENT: No rhinorrhea. Oropharynx is moist. Mouth exam is benign. NECK: Supple. Full range of motion. CARDIOVASCULAR: Normal rate and rhythm without murmur gallop or rub. RESPIRATORY: Clear to auscultation. Breath sounds equal bilaterally. No wheezes, rales, or rhonchi. GASTROINTESTINAL: Abdomen soft, non-tender, nondistended. EXTREMITIES: No edema, full range of motion. No obvious trauma. BACK: Normal inspection, no CVA tenderness. NEURO: Nonfocal examination, normal speech, normal gait. SKIN: Chronic venous stasis changes PSYCH: Normally oriented. Normal range of affect. Appropriate behavior Initial Vital Signs Initial Vital Signs: Vital Signs Temperature 98.8 F 05/06/22 10:41 Pulse Rate 79 05/06/22 10:41 Respiratory Rate 18 05/06/22 10:41 Blood Pressure 164/85 H 05/06/22 10:41 Pulse Oximetry 97 05/06/22 10:41 Oxygen Delivery Method 05/06/22 10:41 Course Orders Ordered: ED Orders 05/06/22 10:35 CT head/brain wo con Stat XR chest 1V Stat 05/06/22 10:39 COVID19 -Nasal RAPID/Pre-Proc Stat 05/06/22 10:45 EKG-12 Lead Stat 05/06/22 11:01 CBC Auto Diff [Complete Blood Count AUTO DIFF] Stat CMP [Comprehensive Metabolic Panel] Stat Lactate (Lactic Acid) Stat Prothrombin Time INR Stat Troponin I Stat 05/06/22 11:24 UA dip and micro [Urinalysis and Microscopic] Stat Urine Culture Stat Discontinued Medications Acetaminophen (Acetaminophen 325 Mg Tablet) 975 mg PO NOW ONE Stop: 05/06/22 10:34 Last Admin: 05/06/22 11:39 Dose: 975 mg Documented By: LINH Cephalexin HCl (Cephalexin 250 Mg Capsule) 500 mg PO NOW ONE Stop: 05/06/22 14:20 Ondansetron HCl (Ondansetron 4 Mg/2 Ml Inj) 4 mg IV Q2HR PRN PRN Reason: Nausea And Vomiting Vital Signs Vital signs: Vital Signs - 8 hr 05/06/22 10:41 05/06/22 10:41 05/06/22 10:43 Temperature 98.8 F Pulse Rate 79 78 Respiratory Rate 18 Blood Pressure 164/85 H 153/70 H Pulse Oximetry 97 Oxygen Delivery Method Room Air 05/06/22 10:43 05/06/22 11:13 05/06/22 11:30 Temperature Pulse Rate 85 69 69 Respiratory Rate 22 22 Blood Pressure Pulse Oximetry 96 98 96 Oxygen Delivery Method 05/06/22 12:00 05/06/22 12:30 05/06/22 12:40 Temperature Pulse Rate 68 68 Respiratory Rate 23 22 Blood Pressure 154/73 H Pulse Oximetry 96 95 Oxygen Delivery Method 05/06/22 12:40 05/06/22 13:00 05/06/22 13:00 Temperature Pulse Rate 70 67 Respiratory Rate 20 19 Blood Pressure 155/75 H Pulse Oximetry 97 96 Oxygen Delivery Method MDM - Headache Lab Data Result diagrams: 05/06/22 11:01 05/06/22 11:01 Labs: Lab Results 05/06/22 05/06/22 05/06/22 Range/Units 10:39 11:01 11:01 WBC 6.0 (4.5-11.0) X10^3/uL RBC 4.48 (4.0-5.2) X10^6/uL Hgb 13.5 (12.0-16.0) g/dL Hct 38.7 (36-46) % MCV 86.4 (80-100) fL MCH 30.1 (26-34) PG MCHC 34.8 (30-36) % RDW 13.6 (11.6-14.8) % Plt Count 232 (150-400) X10^3/uL Neut % (Auto) 73.5 (50-75) % Lymph % (Auto) 18.9 L (25-40) % [place] % (Auto) 6.5 (3-14) % Eos % (Auto) 0.3 L (2-4) % Baso % (Auto) 0.8 (0-2) % Neut # (Auto) 4400 (5014-2288) /uL Lymph # (Auto) 1100 (9853-5110) /uL [place] # (Auto) 400 (0-900) /uL Eos # (Auto) 0 (0-450) /uL Baso # (Auto) 0 (0-100) /uL PT (10.1-12.7) SECONDS INR (0.9-1.3) Sodium 137 (137-145) mmol/L Potassium 4.3 (3.4-5.1) mmol/L Chloride 106 (98-107) mmol/L Carbon Dioxide 26 (22-32) mmol/L BUN 22 H (7-17) mg/dL Creatinine 1.28 H (0.52-1.04) mg/dL Estimated GFR 41 L (>60) mL/min BUN/Creatinine Ratio 17.2 (6-22) Glucose 138 H (80-110) mg/dL Lactate (0.7-2.1) mmol/L Calcium 9.1 (8.4-10.2) mg/dL Total Bilirubin 1.1 (0.2-1.3) mg/dL AST 29 (14-36) IU/L ALT 23 (<35) IU/L Alkaline Phosphatase 74 (38-126) U/L Troponin I 0.015 (0.01-0.034) ng/mL Total Protein 6.7 (6.3-8.2) g/dL Albumin 4.1 (3.5-5.0) g/dL Globulin 2.6 (1.7-4.1) g/dL Albumin/Globulin Ratio 1.6 (1.0-2.8) Urine Color Urine Appearance Urine pH (4.5-8.0) Ur Specific [place] (1.000-1.035) Urine Protein (Negative) Urine Glucose (UA) (Negative) g/dL Urine Ketones (NEGATIVE) Urine Occult Blood (Negative) Urine Nitrate (Negative) Urine Bilirubin (NEGATIVE) Urine Urobilinogen (0.2) E.U./dL Ur Leukocyte Esterase (NEGATIVE) Urine RBC (0-5/HPF) Urine WBC (0-5/HPF) Ur Squamous Epith Cells (0-5/HPF) Urine Bacteria (None) Ur Culture Indicated? SARS-CoV-2 (PCR) Negative (Negative) 05/06/22 05/06/22 05/06/22 Range/Units 11:01 11:01 11:24 WBC (4.5-11.0) X10^3/uL RBC (4.0-5.2) X10^6/uL Hgb (12.0-16.0) g/dL Hct (36-46) % MCV (80-100) fL MCH (26-34) PG MCHC (30-36) % RDW (11.6-14.8) % Plt Count (150-400) X10^3/uL Neut % (Auto) (50-75) % Lymph % (Auto) (25-40) % [place] % (Auto) (3-14) % Eos % (Auto) (2-4) % Baso % (Auto) (0-2) % Neut # (Auto) (6526-8992) /uL Lymph # (Auto) (4484-8435) /uL [place] # (Auto) (0-900) /uL Eos # (Auto) (0-450) /uL Baso # (Auto) (0-100) /uL PT 26.3 H (10.1-12.7) SECONDS INR 2.3 H (0.9-1.3) Sodium (137-145) mmol/L Potassium (3.4-5.1) mmol/L Chloride (98-107) mmol/L Carbon Dioxide (22-32) mmol/L BUN (7-17) mg/dL Creatinine (0.52-1.04) mg/dL Estimated GFR (>60) mL/min BUN/Creatinine Ratio (6-22) Glucose (80-110) mg/dL Lactate 1.2 (0.7-2.1) mmol/L Calcium (8.4-10.2) mg/dL Total Bilirubin (0.2-1.3) mg/dL AST (14-36) IU/L ALT (<35) IU/L Alkaline Phosphatase (38-126) U/L Troponin I (0.01-0.034) ng/mL Total Protein (6.3-8.2) g/dL Albumin (3.5-5.0) g/dL Globulin (1.7-4.1) g/dL Albumin/Globulin Ratio (1.0-2.8) Urine Color Yellow Urine Appearance Cloudy Urine pH 6.5 (4.5-8.0) Ur Specific [place] 1.015 (1.000-1.035) Urine Protein Negative (Negative) Urine Glucose (UA) Negative (Negative) g/dL Urine Ketones Negative (NEGATIVE) Urine Occult Blood Trace-intact (Negative) Urine Nitrate Positive H (Negative) Urine Bilirubin Negative (NEGATIVE) Urine Urobilinogen 0.2 (0.2) E.U./dL Ur Leukocyte Esterase 1+ H (NEGATIVE) Urine RBC None seen (0-5/HPF) Urine WBC 5-10/hpf H (0-5/HPF) Ur Squamous Epith Cells 0-1 /hpf (0-5/HPF) Urine Bacteria Many (>30) H (None) Ur Culture Indicated? Specimen cultured SARS-CoV-2 (PCR) (Negative) Imaging Data CT scan - head: Radiologist's Impression: IMPRESSION:? 1. No acute intracranial abnormality. 2. Cerebral volume loss and small vessel ischemic changes.? Dictated by: Chacorta Landavrede M.D. on 05/06/2022 at 11:24 ? ? Approved by: Chacorta Landaverde M.D. on 05/06/2022 at 11:25? Chest x-ray: Radiologist's Impression: IMPRESSION:? No acute cardiopulmonary abnormality. ? ? ? Dictated by: Chacorta Landaverde M.D. on 05/06/2022 at 11:16 ? ? Approved by: Chacorta Landaverde M.D. on 05/06/2022 at 11:17 ? ECG Data Interpretation: EKG obtained at 10:43 a.m. shows a sinus rhythm at rate of 72. She has poor R- wave progression giving her some chance of an old anterior infarct. No acute ST or T-wave changes nonspecific changes with T-wave flattening generally generally low voltage as well. Discharge Plan Departure Patient Disposition: Home Clinical Impression: Acute pyelonephritis Instructions: DI for Kidney Infection Activity Restrictions/Additional Instructions: I am glad your feeling a little bit better. After very detailed evaluation I think the condition that you have causing all of the symptoms is a bladder/kidney infection. Sometimes called a UTI. Kidney infections tend to make people feel quite a bit worse. I will treat you with cephalexin 4 times daily for 7 days. This should resolve the infection. Sometimes culture results show the need to change antibiotics and if that is the case someone will call you in a few days. Drink plenty of fluid, get plenty of rest, take Tylenol or ibuprofen as needed for discomfort or fever. Follow up in the ER right away for repeated vomiting or if you are too ill to get up and walk around and take care of normal daily activities. Prescriptions: New cephalexin 500 mg capsule 500 mg PO QID Qty: 28 0RF No Action ascorbate calcium (vitamin C) 500 mg tablet 500 mg PO DAILY cyanocobalamin (vitamin B-12) 1,000 mcg capsule 1,000 mcg PO DAILY atorvastatin [Lipitor] 20 mg tablet 20 mg PO HS Qty: 90 3RF warfarin [Jantoven] 5 mg tablet 5 mg PO SEE INSTRUCTIONS Qty: 120 3RF Rx Instructions: Take 1 tab by mouth on Mon, Wed and Fri. Take 1/2 tab (2.5) the other 4 evenings or as directed. lisinopril 10 mg tablet 10 mg PO Q DAY Qty: 90 3RF Referrals: Serg Avalos MD [Primary Care Provider] -
--- NOTE | 2022-05-06 10:35 | DI.RAD.S_ITS ---
PROCEDURE: XR CHEST 1V INDICATIONS: Palpitations TECHNIQUE: One view of the chest was acquired. COMPARISON: [facility], , CHEST 2 VIEW, 03/11/2014, 12:38. FINDINGS: Surgical changes and devices: None. Lungs and pleura: Lung volumes are low. Lungs are clear. No pleural effusions or pneumothorax. Mediastinum: Mediastinal contours appear normal. Heart size is normal. Bones and chest wall: No suspicious bony lesions. Overlying soft tissues appear unremarkable. IMPRESSION: No acute cardiopulmonary abnormality. Dictated by: Chacorta Landaverde M.D. on 05/06/2022 at 11:16 Approved by: Chacorta Landaverde M.D. on 05/06/2022 at 11:17
--- NOTE | 2022-05-06 10:35 | DI.CT.S_ITS ---
PROCEDURE: CT HEAD/BRAIN WO CON INDICATIONS: headache TECHNIQUE: Noncontrast 4.5 mm thick angled axial sections acquired from the foramen magnum to the vertex, with coronal and sagittal reformats. For radiation dose reduction, the following was used: automated exposure control, adjustment of mA and/or kV according to patient size. COMPARISON: None. FINDINGS: Image quality: Excellent. CSF spaces: Basal cisterns are patent. No extra-axial fluid collections. The ventricles are symmetric in size and shape. Brain: No intracranial bleeds or masses. There is cerebral volume loss for age, with resultant ventricular and sulcal prominence. There are periventricular and deep white matter chronic small vessel ischemic changes. There is intracranial internal carotid artery atherosclerosis. Skull and face: Calvarium and visualized facial bones appear intact, without suspicious lesions. Sinuses: Visualized sinuses and mastoids are clear. IMPRESSION: 1. No acute intracranial abnormality. 2. Cerebral volume loss and small vessel ischemic changes. Dictated by: Chacorta Landaverde M.D. on 05/06/2022 at 11:24 Approved by: Cahcorta Landaverde M.D. on 05/06/2022 at 11:25
[2022-05-06 11:08] LABS: COVID19 -Nasal RAPID Negative (Negative)
[2022-05-06 11:08] LABS: Add Manual Diff / Slide Review NO; Basophils Absolute Auto 0 /uL (0-100); Basophils Percent Auto 0.8 % (0-2); Eosinophils Absolute Auto 0 /uL (0-450); Eosinophils Percent Auto 0.3 % (2-4); Hematocrit 38.7 % (36-46); Hemoglobin 13.5 g/dL (12.0-16.0); Lymphocytes Absolute Auto 1100 /uL (1100-4500); Lymphocytes Percent Auto 18.9 % (25-40); Mean Corpuscular HGB Conc 34.8 % (30-36); Mean Corpuscular Hemoglobin 30.1 PG (26-34); Mean Corpuscular Volume 86.4 fL (80-100); Monocytes Absolute Auto 400 /uL (0-900); Monocytes Percent Auto 6.5 % (3-14); Neutrophils Absolute Auto 4400 /uL (1500-7000); Neutrophils Percent Auto 73.5 % (50-75); Platelet Count 232 X10^3/uL (150-400); Red Blood Cell Count 4.48 X10^6/uL (4.0-5.2); Red Cell Distribution Width 13.6 % (11.6-14.8)
[2022-05-06 11:16] LABS: INR 2.3 (0.9-1.3); Prothrombin Time 26.3 SECONDS (10.1-12.7)
[2022-05-06 11:20] LABS: Alanine Aminotransferase 23 IU/L (<35); Albumin 4.1 g/dL (3.5-5.0); Albumin Globulin Ratio 1.6 (1.0-2.8); Alkaline Phosphatase 74 U/L (38-126); Aspartate Aminotransferase 29 IU/L (14-36); BUN Creatinine Ratio 17.2 (6-22); Bilirubin Total 1.1 mg/dL (0.2-1.3); Blood Urea Nitrogen 22 mg/dL (7-17); Calcium 9.1 mg/dL (8.4-10.2); Carbon Dioxide 26 mmol/L (22-32); Chloride 106 mmol/L (98-107); Estimated Glomerular Filt Rate 41 mL/min (>60); Globulin 2.6 g/dL (1.7-4.1); Glucose 138 mg/dL (80-110); HEMOLYSIS 20 (0-50); Potassium 4.3 mmol/L (3.4-5.1); Sodium 137 mmol/L (137-145); Total Protein 6.7 g/dL (6.3-8.2)
[2022-05-06 11:21] LABS: Lactate (Lactic Acid) 1.2 mmol/L (0.7-2.1)
[2022-05-06 11:28] LABS: Appearance Urine UA CLOUDY; Bilirubin Urine UA NEGATIVE (NEGATIVE); Color Urine UA YELLOW; Glucose Urine UA NEGATIVE (Negative); Ketones Urine UA NEGATIVE (NEGATIVE); Leukocyte Esterase Urine UA 1+ (NEGATIVE); Nitrite Urine UA POSITIVE (Negative); Occult Blood Urine UA TRACE-INTACT (Negative); Protein Urine UA NEGATIVE (Negative); Specific Gravity Urine UA 1.015 (1.000-1.035); Urobilinogen Urine UA 0.2 E.U./dL (0.2)
[2022-05-06 11:31] LABS: Troponin I 0.015 ng/mL (0.01-0.034)
[2022-05-06 11:33] LABS: pH Urine UA 6.5 (4.5-8.0)
[2022-05-06 11:36] LABS: Bacteria Urine Many (>30); Culture Indicated Urine Specimen Cultured; RBC Urine None Seen (0-5/HPF); Squamous Epithelial Cell Urine 0-1 /HPF (0-5/HPF); WBC Urine 5-10/HPF (0-5/HPF)
[2022-05-06] MEDS: ACETAMINOPHEN 325 MG TABLET 975 MG PO (11:39)
[2022-05-06] MEDS: cephALEXin 250 MG CAPSULE 500 MG PO (14:36)
== END 2022-05-06 14:47 | disposition home or self-care (01) ==
PROVIDERS: Emergency Provider Family Medicine Addiction Medicine; PCP Family Medicine
DX: N10 Acute pyelonephritis (principal); R51.9 Headache, unspecified; Z20.822 Contact with and (suspected) exposure to COVID-19; Z79.01 Long term (current) use of anticoagulants; I25.2 Old myocardial infarction; R00.2 Palpitations
CPT/HCPCS: 70450; 71045; 80053; 81001; 83605; 84484; 85025; 85610; 87077; 87086; 87186; 87635; 93005; 93010; 99283; 99284; C9803

== ENCOUNTER → 2022-05-16 09:54 | Outpatient (CLI) | payer MEDICARE, OTHER, SELFPAY ==
[2022-05-16 11:17] LABS: Appearance Urine UA CLEAR; Bilirubin Urine UA NEGATIVE (NEGATIVE); Color Urine UA YELLOW; Glucose Urine UA NEGATIVE (Negative); Ketones Urine UA NEGATIVE (NEGATIVE); Leukocyte Esterase Urine UA 2+ (NEGATIVE); Nitrite Urine UA NEGATIVE (Negative); Occult Blood Urine UA 3+ (Negative); Protein Urine UA NEGATIVE (Negative); Urobilinogen Urine UA 0.2 E.U./dL (0.2)
[2022-05-16 11:55] LABS: INR 2.2 (0.9-1.3); Prothrombin Time 25.3 SECONDS (10.1-12.7)
[2022-05-16 12:03] LABS: BUN Creatinine Ratio 14.8 (6-22); Blood Urea Nitrogen 20 mg/dL (7-17); Calcium 9.4 mg/dL (8.4-10.2); Carbon Dioxide 28 mmol/L (22-32); Chloride 106 mmol/L (98-107); Estimated Glomerular Filt Rate 39 mL/min (>60); Glucose 112 mg/dL (80-110); HEMOLYSIS < 15 (0-50); Potassium 4.5 mmol/L (3.4-5.1); Sodium 140 mmol/L (137-145)
[2022-05-16 13:13] LABS: Amorphous Sediment Urine 1+; Bacteria Urine Occasional (0-1); Culture Indicated Urine Specimen Cultured; RBC Urine 1-5/HPF (0-5/HPF); Squamous Epithelial Cell Urine 1-5 /HPF (0-5/HPF); WBC Urine 1-5/HPF (0-5/HPF)
== END ==
PROVIDERS: PCP Family Medicine; Referring Provider Physician Assistant; Visit Provider Physician Assistant
DX: N18.9 Chronic kidney disease, unspecified (principal); N10 Acute pyelonephritis; I82.90 Acute embolism and thrombosis of unspecified vein; Z79.01 Long term (current) use of anticoagulants
CPT/HCPCS: 36415; 80048; 81001; 85610; 87086

== ENCOUNTER → 2022-05-30 13:09 | Outpatient (CLI) | payer MEDICARE, OTHER, SELFPAY ==
--- NOTE | 2022-05-30 13:43 | DI.CT.S_ITS ---
PROCEDURE: CT ABDOMEN LIVER PROTOCOL INDICATIONS: FU 02/2020 Abd MRI TECHNIQUE: 4 phase scanning was performed. Non-contrast 5 mm axial sections acquired from the diaphragm to the iliac crests. Following the administration of intravenous contrast, 5 mm thick arterial-phase, portal venous-phase, and 5-minute delayed phase images were acquired through the liver. 5 mm thick coronal and sagittal reformats were performed. For radiation dose reduction, the following was used: automated exposure control, adjustment of mA and/or kV according to patient size. COMPARISON: [facility], , MR ABDOMEN WO/W CON, 02/19/2020, 14:47. FINDINGS: Image quality: Excellent. Lung bases: Mild gravitational changes present at both lung bases. Mild cardiomegaly with dense mitral annular calcification partially imaged. Liver: The liver is slightly decreased in size from normal. There is a hypodense, hypoenhancing area in segment VII of the liver measuring 2.9 x 2.6 cm containing coarse internal calcifications. A partially exophytic cyst arises from segment III of the liver and demonstrates fine peripheral calcification. This measures about 3.4 cm in diameter. There is a small adjacent peripherally calcified cyst to the right (segment IV B). Two noncalcified cysts are seen along the far left lateral aspect of segment II. There are no arterially enhancing liver lesions. Other solid organs: Gallbladder is decompressed. Normal wall thickness and no internal calcification.. Biliary system is non dilated. No visible cystic lesions in the pancreas. Pancreas is normal in morphology. Spleen is normal in size and enhancement. No adrenal nodules. Both kidneys are diminutive in size with cortical thinning and prominence of the collecting systems. There are no obstructing collecting system calcifications. No parenchymal masses. Proximal ureters are normal caliber. Nodes and vessels: No retroperitoneal or mesenteric adenopathy by size criteria. Aorta and inferior vena cava are normal in size. Bowel and peritoneum: The stomach contains ingested material. The visible loops of bowel are normal. No free fluid or free air. Bones: Levoscoliosis in the mid lumbar spine. Multilevel disc degeneration. Miscellaneous: No ventral hernias. IMPRESSION: 1. There has been involution of left hepatic lobe cysts, the larger now demonstrates peripheral calcification. 2. Relatively stable hypoenhancing area in segment VII of the liver containing coarse dystrophic calcification, likely sequelae of remote infection, inflammation, or intervention. 3. Diminutive kidneys consistent with history of renal disease. 4. No enlargement of cystic lesions in the pancreas seen on prior MRI, less well seen on the current study. Dictated by: Hazel Cardenas M.D. on 05/30/2022 at 16:32 Approved by: Hazel Cardenas M.D. on 05/30/2022 at 16:44
== END ==
PROVIDERS: PCP Family Medicine; Referring Provider Physician Assistant; Visit Provider Physician Assistant
DX: K76.89 Other specified diseases of liver (principal); R93.2 Abnormal findings on diagnostic imaging of liver and biliary tract
CPT/HCPCS: 74170; Q9967

== ENCOUNTER → 2022-07-01 10:36 | Outpatient (CLI) | payer MEDICARE, OTHER, SELFPAY ==
--- NOTE | 2022-07-01 10:38 | DI.MG.S_ITS ---
BILATERAL DIGITAL SCREENING MAMMOGRAM 3D/2D WITH CAD: 07/01/2022 CLINICAL: Routine screening. Comparison is made to exams dated: 06/25/2021 mammogram, 05/12/2020 mammogram, and 04/28/2019 mammogram - [facility]. There are scattered areas of fibroglandular density in both breasts (category b / 25%-50% glandular tissue). Current study was also evaluated with a Computer Aided Detection (CAD) system. There are benign vascular calcifications in both breasts. There are mole markers on both breasts. No significant masses, calcifications, or other findings are seen in either breast. There has been no significant interval change. IMPRESSION: BENIGN There is no mammographic evidence of malignancy. A 1 year screening mammogram is recommended. Based on the Tyrer Cuzick model (a risk assessment model) the patient's lifetime risk is 0.3% and her 10 year risk is 0.0%. According to the ACR, ACS, and NCCN guidelines, an annual breast MRI exam along with mammogram is recommended if the patient's lifetime risk is 20% or greater. This exam was interpreted at Station ID: [id number]. NOTE: For mammograms, a report in lay terms will be sent to the patient. Approximately 15% of breast malignancies will not be visualized mammographically. In the management of a palpable breast mass, a negative mammogram must not discourage biopsy of a clinically suspicious lesion. Electronically Signed By: Dong florez/anthony:07/03/2022 08:16:37 letter sent: Normal Exam ACR BI-RADS Category 2: Benign Finding(s) 3342F
== END ==
PROVIDERS: PCP Family Medicine; Referring Provider Family Medicine; Visit Provider Family Medicine
DX: Z12.31 Encounter for screening mammogram for malignant neoplasm of breast (principal)
CPT/HCPCS: 77063; 77067

== ENCOUNTER → 2022-08-17 13:40 | Outpatient (CLI) | payer MEDICARE, OTHER, SELFPAY ==
--- NOTE | 2022-08-17 13:42 | DI.RAD.S_ITS ---
PROCEDURE: XR HIP W PEL IF DONE FABRICE MIN 4V INDICATIONS: B hip pain L > R; antalgic gait left TECHNIQUE: AP pelvis with lateral view(s) of the bilateral hip(s). COMPARISON: [facility], [place], XR HIP W PEL IF DONE LT 2V, 09/01/2020, 10:31. FINDINGS: Bones: No fracture or dislocation. Both hips have degenerative changes consistent with osteoarthritis worse on the left. The sacroiliac joints have mild degenerative changes. The lower lumbar spine is partially visualized with degenerative changes. Soft tissues: The visualized bowel gas pattern is normal. No suspicious soft tissue calcifications. Calcified phleboliths are seen in the pelvis. Vasculature has atherosclerotic calcifications. IMPRESSION: Osteoarthritis of both hips, worse on the left. Dictated by: Chacorta Landaverde M.D. on 08/18/2022 at 8:39 Approved by: Chacorta Landaverde M.D. on 08/18/2022 at 8:41
== END ==
PROVIDERS: PCP Family Medicine; Referring Provider Physician Assistant; Visit Provider Physician Assistant
DX: M16.0 Bilateral primary osteoarthritis of hip (principal); M25.551 Pain in right hip; M25.552 Pain in left hip; M25.60 Stiffness of unspecified joint, not elsewhere classified; R26.89 Other abnormalities of gait and mobility
CPT/HCPCS: 73522

== ENCOUNTER → 2023-03-01 13:43 | Outpatient (CLI) | payer MEDICARE, OTHER, SELFPAY ==
[2023-03-01 15:12] LABS: Hemoglobin 13.5 g/dL (12.0-16.0)
[2023-03-01 15:28] LABS: BUN Creatinine Ratio 15.3 (6-22); Blood Urea Nitrogen 18 mg/dL (7-17); Calcium 8.7 mg/dL (8.4-10.2); Carbon Dioxide 28 mmol/L (22-32); Chloride 104 mmol/L (98-107); Estimated Glomerular Filt Rate 45 mL/min (>60); Glucose 175 mg/dL (80-110); HEMOLYSIS < 15 (0-50); Sodium 138 mmol/L (137-145)
[2023-03-01 15:42] LABS: Creatinine Urine Random 119.3 mg/dL
[2023-03-01 15:46] LABS: Microalbumi Creatinin Ratio Ur 20.1 ug/mg CR (<30); Microalbumin Urine Random 2.4 mg/dL (0-1.6)
== END ==
PROVIDERS: PCP Family Medicine; Referring Provider Internal Medicine Nephrology; Visit Provider Internal Medicine Nephrology
DX: I10 Essential (primary) hypertension (principal); N18.32 Chronic kidney disease, stage 3b
CPT/HCPCS: 36415; 80048; 82043; 82570; 85014; 85018

== ENCOUNTER → 2023-05-31 14:01 | Outpatient (CLI) | payer MEDICARE, OTHER, SELFPAY ==
[2023-05-31 14:34] LABS: Prothrombin Time 60.5 SECONDS (10.1-12.7)
[2023-05-31 14:51] LABS: INR 5.2 (0.9-1.3)
== END ==
PROVIDERS: PCP Family Medicine; Referring Provider Family Medicine; Visit Provider Family Medicine
DX: I82.90 Acute embolism and thrombosis of unspecified vein (principal); Z79.01 Long term (current) use of anticoagulants
CPT/HCPCS: 36415; 85610

== ENCOUNTER → 2023-07-10 09:48 | Outpatient (CLI) | payer MEDICARE, OTHER, SELFPAY ==
--- NOTE | 2023-07-10 | DI.MG.S_ITS ---
BILATERAL DIGITAL SCREENING MAMMOGRAM 3D/2D WITH CAD: 07/10/2023 CLINICAL: Routine screening. Comparison is made to exams dated: 07/01/2022 mammogram, 06/25/2021 mammogram, and 05/12/2020 mammogram - [facility]. There are scattered areas of fibroglandular density in both breasts (category b / 25%-50% glandular tissue). Current study was also evaluated with a Computer Aided Detection (CAD) system. There are benign calcifications in both breasts. There also are benign vascular calcifications in both breasts. There are mole markers on both breasts. No significant masses, calcifications, or other findings are seen in either breast. There has been no significant interval change. IMPRESSION: BENIGN There is no mammographic evidence of malignancy. A 1 year screening mammogram is recommended. This exam was interpreted at Station ID: [id number]. NOTE: For mammograms, a report in lay terms will be sent to the patient. Approximately 15% of breast malignancies will not be visualized mammographically. In the management of a palpable breast mass, a negative mammogram must not discourage biopsy of a clinically suspicious lesion. Electronically Signed By: Hazel aguilera/anthony:07/10/2023 14:36:31 letter sent: Normal Exam ACR BI-RADS Category 2: Benign Finding(s) [id number]
== END ==
PROVIDERS: PCP Family Medicine; Referring Provider Family Medicine; Visit Provider Family Medicine
DX: Z12.31 Encounter for screening mammogram for malignant neoplasm of breast (principal)
CPT/HCPCS: 77063; 77067

== ENCOUNTER → 2023-07-20 08:30 | Outpatient (CLI) | payer MEDICARE, OTHER, SELFPAY ==
[2023-07-20 09:59] LABS: Add Manual Diff / Slide Review NO; Basophils Absolute Auto 0 /uL (0-100); Basophils Percent Auto 0.6 % (0-2); Eosinophils Absolute Auto 100 /uL (0-450); Eosinophils Percent Auto 2.8 % (2-4); Hematocrit 38.3 % (36-46); Hemoglobin 13.4 g/dL (12.0-16.0); Lymphocytes Absolute Auto 1200 /uL (1100-4500); Lymphocytes Percent Auto 30.2 % (25-40); Mean Corpuscular HGB Conc 35.1 % (30-36); Mean Corpuscular Hemoglobin 30.7 PG (26-34); Mean Corpuscular Volume 87.5 fL (80-100); Monocytes Absolute Auto 700 /uL (0-900); Monocytes Percent Auto 16.6 % (3-14); Neutrophils Absolute Auto 2000 /uL (1500-7000); Neutrophils Percent Auto 49.8 % (50-75); Platelet Count 235 X10^3/uL (150-400); Red Blood Cell Count 4.38 X10^6/uL (4.0-5.2); Red Cell Distribution Width 14.3 % (11.6-14.8); White Blood Cell Count 4.1 X10^3/uL (4.5-11.0)
[2023-07-20 10:24] LABS: Alanine Aminotransferase 27 IU/L (<35); Albumin 3.8 g/dL (3.5-5.0); Albumin Globulin Ratio 1.5 (1.0-2.8); Alkaline Phosphatase 81 U/L (38-126); Aspartate Aminotransferase 28 IU/L (14-36); BUN Creatinine Ratio 14.2 (6-22); Bilirubin Total 0.8 mg/dL (0.2-1.3); Blood Urea Nitrogen 18 mg/dL (7-17); Calcium 9.5 mg/dL (8.4-10.2); Carbon Dioxide 31 mmol/L (22-32); Chloride 105 mmol/L (98-107); Cholesterol 176 mg/dL (140-199); Estimated Glomerular Filt Rate 41 mL/min (>60); Globulin 2.6 g/dL (1.7-4.1); Glucose 124 mg/dL (80-110); HDL Cholesterol 52 mg/dL (40-60); HEMOLYSIS < 15 (0-50); LDL Cholesterol Calculated 102 mg/dL (<100); Potassium 4.6 mmol/L (3.4-5.1); Sodium 140 mmol/L (137-145); Total Protein 6.4 g/dL (6.3-8.2); Triglycerides 108 mg/dL (35-150)
[2023-07-20 10:50] LABS: TSH w/ Reflex to FT4 1.81 uIU/mL (0.47-4.68)
[2023-07-20 15:43] LABS: Hemoglobin A1C% w Est Avg Glu 6.4 % (4.0-6.0)
== END ==
PROVIDERS: PCP Family Medicine; Referring Provider Family Medicine; Visit Provider Family Medicine
DX: E78.2 Mixed hyperlipidemia (principal); I10 Essential (primary) hypertension; R73.09 Other abnormal glucose
CPT/HCPCS: 36415; 80053; 80061; 83036; 84443; 85025

== ENCOUNTER → 2023-07-26 12:08 | Outpatient (CLI) | payer MEDICARE, OTHER, SELFPAY ==
[2023-07-26 12:52] LABS: Bilirubin Urine UA NEGATIVE (NEGATIVE); Color Urine UA YELLOW; Glucose Urine UA NEGATIVE (Negative); Ketones Urine UA NEGATIVE (NEGATIVE); Leukocyte Esterase Urine UA 1+ (NEGATIVE); Nitrite Urine UA POSITIVE (Negative); Occult Blood Urine UA NEGATIVE (Negative); Protein Urine UA NEGATIVE (Negative); Specific Gravity Urine UA 1.015 (1.000-1.035)
[2023-07-26 12:54] LABS: Appearance Urine UA Slightly Cloudy; pH Urine UA 5.5 (4.5-8.0)
[2023-07-26 13:01] LABS: Bacteria Urine Many (>30); RBC Urine 1-5/HPF (0-5/HPF); Squamous Epithelial Cell Urine 1-5 /HPF (0-5/HPF); WBC Urine 30-100/HPF (0-5/HPF)
[2023-07-26 13:02] LABS: Culture Indicated Urine Specimen Cultured
== END ==
PROVIDERS: PCP Family Medicine; Visit Provider Family Medicine
DX: R30.0 Dysuria (principal)
CPT/HCPCS: 81001; 87077; 87086; 87186

== ENCOUNTER → 2023-08-30 14:01 | Outpatient (CLI) | payer MEDICARE, OTHER, SELFPAY ==
[2023-08-30 15:49] LABS: Bacteria Urine Many (>30); Culture Indicated Urine Specimen Cultured; RBC Urine None Seen (0-5/HPF); Squamous Epithelial Cell Urine 1-5 /HPF (0-5/HPF); WBC Urine 30-100/HPF (0-5/HPF)
== END ==
PROVIDERS: PCP Family Medicine; Referring Provider Family Medicine; Visit Provider Family Medicine
DX: R35.0 Frequency of micturition (principal); N39.0 Urinary tract infection, site not specified
CPT/HCPCS: 36415; 81015; 87077; 87086; 87186

== ENCOUNTER → 2023-09-13 10:50 | Outpatient (CLI) | payer MEDICARE, OTHER, SELFPAY ==
[2023-09-13 12:54] LABS: Bilirubin Urine UA NEGATIVE (NEGATIVE); Color Urine UA YELLOW; Glucose Urine UA NEGATIVE (Negative); Ketones Urine UA NEGATIVE (NEGATIVE); Leukocyte Esterase Urine UA 2+ (NEGATIVE); Nitrite Urine UA POSITIVE (Negative); Occult Blood Urine UA NEGATIVE (Negative); Protein Urine UA NEGATIVE (Negative); Specific Gravity Urine UA 1.025 (1.000-1.035); Urobilinogen Urine UA 0.2 E.U./dL (0.2)
[2023-09-13 12:56] LABS: Appearance Urine UA CLOUDY
[2023-09-13 13:05] LABS: Bacteria Urine Many (>30); RBC Urine None Seen (0-5/HPF); Squamous Epithelial Cell Urine 5-10 /HPF (0-5/HPF); WBC Urine 10-30/HPF (0-5/HPF)
[2023-09-13 13:06] LABS: Culture Indicated Urine Specimen Cultured
== END ==
PROVIDERS: PCP Family Medicine; Referring Provider Family Medicine; Visit Provider Family Medicine
DX: R35.0 Frequency of micturition (principal)
CPT/HCPCS: 81001; 87077; 87086; 87186

== ENCOUNTER → 2024-02-28 13:31 | Outpatient (CLI) | payer MEDICARE, OTHER, SELFPAY ==
[2024-02-28 16:27] LABS: Appearance Urine UA SL CLOUDY; Bilirubin Urine UA NEGATIVE (NEGATIVE); Color Urine UA YELLOW; Glucose Urine UA NEGATIVE (Negative); Ketones Urine UA NEGATIVE (NEGATIVE); Leukocyte Esterase Urine UA 3+ (NEGATIVE); Nitrite Urine UA POSITIVE (Negative); Occult Blood Urine UA 1+ (Negative); Protein Urine UA NEGATIVE (Negative); Urobilinogen Urine UA 0.2 E.U./dL (0.2)
[2024-02-28 16:28] LABS: pH Urine UA 5.5 (4.5-8.0)
[2024-02-28 16:38] LABS: Bacteria Urine Many (>30); Culture Indicated Urine Specimen Cultured; Mucus Urine 1+ (Negative); RBC Urine 0-1/HPF (0-5/HPF); Squamous Epithelial Cell Urine >30 /HPF (0-5/HPF); Urine Volume 10mL (spun); WBC Urine 30-100/HPF (0-5/HPF)
== END ==
PROVIDERS: PCP Family Medicine; Referring Provider Family Medicine; Visit Provider Family Medicine
DX: R35.0 Frequency of micturition (principal)
CPT/HCPCS: 81001; 87077; 87086

== ENCOUNTER → 2024-03-19 10:55 | Outpatient (CLI) | payer MEDICARE, OTHER, SELFPAY ==
[2024-03-19 13:43] LABS: Appearance Urine UA CLOUDY; Bilirubin Urine UA NEGATIVE (NEGATIVE); Color Urine UA YELLOW; Glucose Urine UA 1+ g/dL (Negative); Ketones Urine UA NEGATIVE (NEGATIVE); Leukocyte Esterase Urine UA 2+ (NEGATIVE); Nitrite Urine UA POSITIVE (Negative); Occult Blood Urine UA 1+ (Negative); Protein Urine UA TRACE (Negative); Specific Gravity Urine UA 1.025 (1.000-1.035); Urobilinogen Urine UA 0.2 E.U./dL (0.2)
[2024-03-19 13:44] LABS: Culture Indicated Urine Specimen Cultured; Urine Volume 10mL (spun)
[2024-03-19 13:50] LABS: Bacteria Urine Many (>30); RBC Urine 1-5/HPF (0-5/HPF); Squamous Epithelial Cell Urine 1-5 /HPF (0-5/HPF); WBC Urine 10-30/HPF (0-5/HPF)
== END ==
PROVIDERS: PCP Family Medicine; Referring Provider Family Medicine; Visit Provider Family Medicine
DX: R30.0 Dysuria (principal)
CPT/HCPCS: 81001; 87077; 87086

== ENCOUNTER → 2024-03-27 08:26 | Outpatient (CLI) | payer MEDICARE, OTHER, SELFPAY ==
[2024-03-27 09:56] LABS: Add Manual Diff / Slide Review NO; Basophils Absolute Auto 0 /uL (0-100); Basophils Percent Auto 0.5 % (0-2); Eosinophils Absolute Auto 200 /uL (0-450); Eosinophils Percent Auto 3.4 % (2-4); Hematocrit 36.6 % (36-46); Lymphocytes Absolute Auto 1300 /uL (1100-4500); Lymphocytes Percent Auto 26.7 % (25-40); Mean Corpuscular HGB Conc 35.6 % (30-36); Mean Corpuscular Hemoglobin 31.3 PG (26-34); Mean Corpuscular Volume 87.9 fL (80-100); Monocytes Absolute Auto 800 /uL (0-900); Neutrophils Absolute Auto 2600 /uL (1500-7000); Neutrophils Percent Auto 52.4 % (50-75); Platelet Count 252 X10^3/uL (150-400); Red Blood Cell Count 4.17 X10^6/uL (4.0-5.2); Red Cell Distribution Width 13.5 % (11.6-14.8)
[2024-03-27 10:51] LABS: Alanine Aminotransferase 25 IU/L (<35); Albumin 3.7 g/dL (3.5-5.0); Albumin Globulin Ratio 1.8 (1.0-2.8); Alkaline Phosphatase 88 U/L (38-126); Aspartate Aminotransferase 29 IU/L (14-36); BUN Creatinine Ratio 13.7 (6-22); Bilirubin Total 0.9 mg/dL (0.2-1.3); Blood Urea Nitrogen 17 mg/dL (7-17); Calcium 8.9 mg/dL (8.4-10.2); Carbon Dioxide 29 mmol/L (22-32); Chloride 108 mmol/L (98-107); Cholesterol 154 mg/dL (140-199); Estimated Glomerular Filt Rate 42 mL/min (>60); Globulin 2.1 g/dL (1.7-4.1); Glucose 120 mg/dL (80-110); HDL Cholesterol 57 mg/dL (40-60); HEMOLYSIS < 15 (0-50); LDL Cholesterol Calculated 76 mg/dL (<100); Potassium 4.3 mmol/L (3.4-5.1); Sodium 140 mmol/L (137-145); Total Protein 5.8 g/dL (6.3-8.2); Triglycerides 104 mg/dL (35-150)
[2024-03-27 20:09] LABS: Hemoglobin A1C% w Est Avg Glu 6.7 % (4.0-6.0)
== END ==
LOC: LAB 08:27
PROVIDERS: PCP Family Medicine; Referring Provider Family Medicine; Visit Provider Family Medicine
DX: E78.5 Hyperlipidemia, unspecified (principal); I12.9 Hypertensive chronic kidney disease with stage 1 through stage 4 chronic kidney disease, or unspecified chronic kidney disease; N18.9 Chronic kidney disease, unspecified; E78.2 Mixed hyperlipidemia; Z79.899 Other long term (current) drug therapy
CPT/HCPCS: 36415; 80053; 80061; 83036; 85025

== ENCOUNTER → 2024-04-02 09:01 | Outpatient (CLI) | payer MEDICARE, OTHER, SELFPAY ==
[2024-04-02 11:27] LABS: Appearance Urine UA CLOUDY; Bilirubin Urine UA NEGATIVE (NEGATIVE); Color Urine UA YELLOW; Glucose Urine UA NEGATIVE (Negative); Ketones Urine UA NEGATIVE (NEGATIVE); Leukocyte Esterase Urine UA 2+ (NEGATIVE); Nitrite Urine UA POSITIVE (Negative); Occult Blood Urine UA 1+ (Negative); Protein Urine UA NEGATIVE (Negative); Urobilinogen Urine UA 0.2 E.U./dL (0.2)
[2024-04-02 11:35] LABS: Bacteria Urine Many (>30); RBC Urine 5-10/HPF (0-5/HPF); Squamous Epithelial Cell Urine 5-10 /HPF (0-5/HPF); Urine Volume 10mL (spun); WBC Urine >100/HPF (0-5/HPF)
[2024-04-02 11:36] LABS: Culture Indicated Urine Specimen Cultured
== END ==
PROVIDERS: PCP Family Medicine; Referring Provider Family Medicine; Visit Provider Family Medicine
DX: R35.0 Frequency of micturition (principal); R30.0 Dysuria
CPT/HCPCS: 81001; 87077; 87086; 87186

== ENCOUNTER → 2024-04-07 15:37 | Outpatient (CLI) | payer MEDICARE, OTHER, SELFPAY ==
--- NOTE | 2024-04-07 15:38 | DI.RAD.S_ITS ---
PROCEDURE: XR CHEST 2V INDICATIONS: cough TECHNIQUE: 2 views of the chest were acquired. COMPARISON: [facility], CR, XR CHEST 1V, 05/06/2022, 11:01. FINDINGS: Surgical changes and devices: None. Lungs and pleura: The left hemidiaphragm is obscured suggesting consolidative radiopacities at the lingular base. No pleural effusion or pneumothorax. Mediastinum: Mediastinal contours are normal. Heart size is normal. Bones and chest wall: No suspicious bony abnormalities. Soft tissues appear unremarkable. IMPRESSION: Findings suspicious for lingular consolidation. Short interval followup is recommended with resolution of the patient's symptoms to ensure there is no underlying pulmonary pathology. Dictated by: Ceci Andre M.D. on 04/07/2024 at 16:54 Approved by: Ceci Andre M.D. on 04/07/2024 at 16:55
== END ==
PROVIDERS: PCP Family Medicine; Referring Provider Family Medicine; Visit Provider Family Medicine
DX: R05.9 Cough, unspecified (principal)
CPT/HCPCS: 71046

== ENCOUNTER → 2024-04-23 09:36 | Outpatient (CLI) | payer MEDICARE, OTHER, SELFPAY | PROVIDERS: PCP Family Medicine; Referring Provider Family Medicine; Visit Provider Family Medicine | DX: R06.02 Shortness of breath (principal); R94.2 Abnormal results of pulmonary function studies | CPT/HCPCS: 94060; 94726; 94729 ==

== ENCOUNTER → 2024-04-24 08:43 | Outpatient (CLI) | payer MEDICARE, OTHER, SELFPAY ==
--- NOTE | 2024-04-24 08:45 | DI.CT.S_ITS ---
PROCEDURE: CT CHEST W CON INDICATIONS: cough with left lower lung consolidation TECHNIQUE: After the administration of intravenous contrast, 5 mm thick sections acquired from the pulmonary apices to the posterior costophrenic angles. 1 mm axial lung, 5 mm thick coronal and sagittal reformats and 7 mm axial MIP were acquired. For radiation dose reduction, the following was used: automated exposure control, adjustment of mA and/or kV according to patient size. COMPARISON: [facility], CT, CT ABDOMEN LIVER PROTOCOL, 05/30/2022, 13:15. [facility], CR, XR CHEST 2V, 04/07/2024, 15:43. FINDINGS: Image quality: Diagnostic. Lower Neck: No enlarged lymph nodes. Thyroid: No thyroid nodules which require sonographic follow up, per consensus guidelines. Axillae: No enlarged lymph nodes. Chest Wall: Unremarkable. Bones: Degenerative changes of the spine. Lungs and Pleura: No pneumothorax or pleural effusions. No consolidation or suspicious nodules. Heart: Heart size is normal. Severe coronary artery calcifications. No pericardial effusion. Thoracic Vessels: The aorta and pulmonary arteries demonstrate normal size. Atherosclerotic vascular calcifications. Mediastinum and Shandra: No enlarged lymph nodes. Esophagus: No wall thickening. No hiatal hernia. Upper Abdomen: Redemonstration of lesion the right hepatic lobe with coarse calcifications, stable appearance compared to prior. Rim calcified cystic structure within the left hepatic lobe is stable. IMPRESSION: 1. No pulmonary consolidations. No acute cardiopulmonary process. 2. No suspicious pulmonary nodules. 3. Redemonstration of hepatic lesions as described above, stable compared to prior exam. Dictated by: Michael Norton M.D. on 04/24/2024 at 14:22 Approved by: Michael Norton M.D. on 04/24/2024 at 14:28
== END ==
LOC: CT 08:44
PROVIDERS: PCP Family Medicine; Referring Provider Family Medicine; Visit Provider Family Medicine
DX: J18.1 Lobar pneumonia, unspecified organism (principal); R05.9 Cough, unspecified; I25.10 Atherosclerotic heart disease of native coronary artery without angina pectoris; K76.89 Other specified diseases of liver
CPT/HCPCS: 71260; Q9967

== ENCOUNTER 2024-06-10 18:53 | Emergency (ER) | payer MEDICARE, OTHER, SELFPAY ==
[2024-06-10 18:54] VITALS: BP 140/75; PULSE 80; RESP 18; TEMP 36.5; O2SAT 95; BMI 29.5
--- NOTE | 2024-06-10 18:55 | EKG_ITS ---
[address] [address] [place] [address] Test Date: 2024-06-10 Pat Name: Radha Plaza Department: [facility] Room: Gender: Female Valet: GONZALEZ : 1940 Requested By: Order Number: [id number] Reading MD: Brandon Tee Measurements Intervals [place] Rate: 82 P: TX: QRS: -16 QRSD: 92 T: 16 QT: 402 QTc: 469 Interpretive Statements Undetermined rhythm Low voltage QRS Cannot rule out Anterior infarct , age undetermined Electronically Signed On 06-11-2024 8:44:13 PDT by Brandon Tee
[2024-06-10 19:02] VITALS: PULSE 81; RESP 24; O2SAT 96
[2024-06-10 19:10] LABS: Add Manual Diff / Slide Review NO; Basophils Absolute Auto 100 /uL (0-100); Basophils Percent Auto 0.9 % (0-2); Eosinophils Absolute Auto 200 /uL (0-450); Eosinophils Percent Auto 2.8 % (2-4); Hematocrit 39.6 % (36-46); Lymphocytes Absolute Auto 2000 /uL (1100-4500); Lymphocytes Percent Auto 34.8 % (25-40); Mean Corpuscular HGB Conc 35.3 % (30-36); Mean Corpuscular Hemoglobin 31.3 PG (26-34); Mean Corpuscular Volume 88.6 fL (80-100); Monocytes Absolute Auto 800 /uL (0-900); Monocytes Percent Auto 13.5 % (3-14); Neutrophils Absolute Auto 2700 /uL (1500-7000); Platelet Count 238 X10^3/uL (150-400); Red Blood Cell Count 4.47 X10^6/uL (4.0-5.2); Red Cell Distribution Width 13.5 % (11.6-14.8); White Blood Cell Count 5.6 X10^3/uL (4.5-11.0)
[2024-06-10 19:20] LABS: Alanine Aminotransferase 26 IU/L (<35); Albumin 3.8 g/dL (3.5-5.0); Albumin Globulin Ratio 1.4 (1.0-2.8); Alkaline Phosphatase 81 U/L (38-126); Aspartate Aminotransferase 31 IU/L (14-36); BUN Creatinine Ratio 18.8 (6-22); Bilirubin Total 0.7 mg/dL (0.2-1.3); Blood Urea Nitrogen 24 mg/dL (7-17); Calcium 9.2 mg/dL (8.4-10.2); Carbon Dioxide 22 mmol/L (22-32); Chloride 106 mmol/L (98-107); Creatine Kinase 91 U/L (30-135); Estimated Glomerular Filt Rate 41 mL/min (>60); Ethanol (ETOH) < 10 mg/dL; Globulin 2.7 g/dL (1.7-4.1); Glucose 253 mg/dL (80-110); HEMOLYSIS 17 (0-50); Lipase 346 U/L (23-300); Potassium 3.9 mmol/L (3.4-5.1); Sodium 137 mmol/L (137-145); Total Protein 6.5 g/dL (6.3-8.2)
[2024-06-10 19:30] VITALS: BP 137/66; PULSE 79; RESP 26; O2SAT 98
[2024-06-10 19:31] LABS: Troponin I < 0.012 ng/mL (0.01-0.034)
--- NOTE | 2024-06-10 19:35 | ED_ITS ---
HPI - General Adult General Chief complaint: Dizziness Stated complaint: near syncope / hypotension Time Seen by Provider: 06/10/24 18:54 Source: patient and EMS Mode of arrival: EMS Limitations: no limitations History of Present Illness HPI narrative: Patient is an 84-year-old female he was here for evaluation of a episode dizziness, almost passing out and low blood pressure. Patient states she was in her normal state of health. She was sitting and a local restaurant having dinner with her . She states she did have 1 drink. While she was sitting at the table she stated that she had a sudden episode of feeling very lightheaded. She felt like she was going to pass out but actually did not pass out. At the time had no headache, vision changes, chest pain, palpitations, shortness of breath, numbness or tingling in upper and lower extremities. When EMS arrived they found the patient to be somewhat hypotensive. She did respond to fluids. Upon my evaluation in the emergency department she stated that she was feeling much better but just ?tired? Related Data Home Medications Medication Instructions Recorded Confirmed ascorbate calcium (vitamin C) 500 500 mg PO DAILY 07/23/19 04/07/24 mg tablet cyanocobalamin (vitamin B-12) 1,000 mcg PO DAILY 07/23/19 04/07/24 1,000 mcg capsule Previous Rx's Medication Instructions Recorded nystatin-triamcinolone 100,000 1 applic topical BID #15 grams 08/17/22 unit/g-0.1 % topical cream atorvastatin 20 mg tablet 20 mg PO ONCE PM #90 tabs 10/11/23 metoprolol succinate 25 mg 25 mg PO DAILY #90 tabs 10/11/23 tablet,extended release 24 hr warfarin 5 mg tablet (Jantoven) 5 mg PO SEE INSTRUCTIONS #120 tabs 02/28/24 nitrofurantoin macrocrystal 100 mg 100 mg PO BID #10 caps 04/02/24 capsule lisinopril 10 mg tablet 10 mg PO DAILY #90 tabs 04/15/24 Allergies Allergy/AdvReac Type Severity Reaction Status Date / Time Sulfa (Sulfonamide Allergy Mild RASH Verified 04/07/24 15:04 Antibiotics) [SULFA (SULFONAMIDE ANTIBIOTICS)] Review of Systems Review of Systems ROS Unobtainable: All systems reviewed & are unremarkable except as noted in HPI and below Patient History Medical History (Updated 06/10/24 @ 19:54 by David Stratton DO) Nausea Abdominal pain Vision disorder Osteoporosis Actinic keratosis (~2015) Rubella Measles (~1946) Chicken pox (~1945) Hearing loss (~2012) Renal failure History of urinary incontinence Kidney stones Hypertension Hyperlipidemia DVT (deep venous thrombosis) (~1996) Class 1 obesity Surgical History Anesthesia History of ovarian cyst Family History Brother Heart disease Father Heart disease Hypertension Mother Stroke Grandfather Heart disease Grandmother Diabetes mellitus Grandmother Diabetes mellitus Social History marital status: Smoking Status: Never smoker alcohol intake: current substance use type: does not use Smoking Status: Never smoker alcohol intake frequency: holidays/special occasions only Substance Use Type: does not use Exam Initial Vital Signs Initial Vital Signs: Vital Signs Temperature 97.7 F 06/10/24 18:54 Pulse Rate 80 06/10/24 18:54 Respiratory Rate 18 06/10/24 18:54 Blood Pressure 140/75 06/10/24 18:54 Pulse Oximetry 95 06/10/24 18:54 Oxygen Delivery Method Room Air 06/10/24 18:54 Const General: cooperative, comfortable and No ill appearing HENHI Head: normal to inspection and normocephalic Resp Effort & Inspection: normal respiratory effort Auscultation: clear to auscultation bilaterally Cardio Rate: regular rate Rhythm: regular rhythm Skin General: no rashes or lesions noted Neuro General: patient alert, patient awake, patient oriented x3 and moves all extremities Extrem General: normal to inspection and capillary refill normal Course Orders Ordered: ED Orders 06/10/24 18:55 Complete Blood Count AUTO DIFF Stat Comprehensive Metabolic Panel Stat Ethanol (ETOH) Stat Lipase Stat Troponin & CK Cardiac Panel Stat EKG-12 Lead Stat Vital Signs Vital signs: Vital Signs - 8 hr 06/10/24 18:54 06/10/24 19:02 06/10/24 19:30 Temperature 97.7 F Pulse Rate 80 81 79 Respiratory Rate 18 26 H Blood Pressure 140/75 Pulse Oximetry 95 96 98 Oxygen Delivery Method Room Air Room Air 06/10/24 19:30 Temperature Pulse Rate Respiratory Rate Blood Pressure 137/66 Pulse Oximetry Oxygen Delivery Method Medical Decision Making Lab Data Lab results reviewed: Yes I reviewed the patient's lab results. 06/10/24 18:55 06/10/24 18:55 Labs: Lab Results 06/10/24 Range/Units 18:55 WBC 5.6 (4.5-11.0) X10^3/uL RBC 4.47 (4.0-5.2) X10^6/uL Hgb 14.0 (12.0-16.0) g/dL Hct 39.6 (36-46) % MCV 88.6 (80-100) fL MCH 31.3 (26-34) PG MCHC 35.3 (30-36) % RDW 13.5 (11.6-14.8) % Plt Count 238 (150-400) X10^3/uL Neut % (Auto) 48.0 L (50-75) % Lymph % (Auto) 34.8 (25-40) % [place] % (Auto) 13.5 (3-14) % Eos % (Auto) 2.8 (2-4) % Baso % (Auto) 0.9 (0-2) % Neut # (Auto) 2700 (5504-3513) /uL Lymph # (Auto) 2000 (7121-1858) /uL [place] # (Auto) 800 (0-900) /uL Eos # (Auto) 200 (0-450) /uL Baso # (Auto) 100 (0-100) /uL Sodium 137 (137-145) mmol/L Potassium 3.9 (3.4-5.1) mmol/L Chloride 106 (98-107) mmol/L Carbon Dioxide 22 (22-32) mmol/L BUN 24 H (7-17) mg/dL Creatinine 1.28 H (0.52-1.04) mg/dL Estimated GFR 41 L (>60) mL/min BUN/Creatinine Ratio 18.8 (6-22) Glucose 253 H (80-110) mg/dL Calcium 9.2 (8.4-10.2) mg/dL Total Bilirubin 0.7 (0.2-1.3) mg/dL AST 31 (14-36) IU/L ALT 26 (<35) IU/L Alkaline Phosphatase 81 (38-126) U/L Total Creatine Kinase 91 (30-135) U/L Troponin I < 0.012 (0.01-0.034) ng/mL Total Protein 6.5 (6.3-8.2) g/dL Albumin 3.8 (3.5-5.0) g/dL Globulin 2.7 (1.7-4.1) g/dL Albumin/Globulin Ratio 1.4 (1.0-2.8) Lipase 346 H (23-300) U/L Ethyl Alcohol < 10 ( - 10) mg/dL ECG Data Attestation: I personally reviewed and interpreted this ECG as follows: Interpretation: Sinus rhythm Ventricular rate of 82 Normal axis Normal QRS No ST T wave changes MDM Narrative Medical decision making narrative: Patient's blood pressure is much improved. Labs unremarkable. No ectopy noted on the EKG. Ambulated around the emergency department without issue. Low suspicion for CVA/TIA. Potential transient cardiac arrhythmia however the patient can follow up with her primary doctor to discuss Holter monitor if needed. Discharge Plan Departure Patient Disposition: Home Clinical Impression: Lightheadedness Instructions: DI for Dizziness-Nonvertigo Activity Restrictions/Additional Instructions: Recommend that you continue to take all of your medications as directed. Contact your primary care doctor for a follow-up. Return to the emergency department for new or worsening symptoms. Prescriptions: No Action ascorbate calcium (vitamin C) 500 mg tablet 500 mg PO DAILY cyanocobalamin (vitamin B-12) 1,000 mcg capsule 1,000 mcg PO DAILY nystatin-triamcinolone 100,000-0.1 unit/g-% cream 1 applic topical BID Qty: 15 3RF metoprolol succinate 25 mg tablet extended release 24 hr 25 mg PO DAILY Qty: 90 3RF atorvastatin 20 mg tablet 20 mg PO ONCE PM Qty: 90 3RF nitrofurantoin macrocrystal 100 mg capsule 100 mg PO BID Qty: 10 0RF Rx Instructions: must administer with a meal/food lisinopril 10 mg tablet 10 mg PO DAILY Qty: 90 3RF warfarin [Jantoven] 5 mg tablet 5 mg PO SEE INSTRUCTIONS Qty: 120 3RF Rx Instructions: Take 1 tab (5mg) total by mouth on Mon and Fri. Take 1/2 tab (2.5mg) total on all other days; or as directed. Referrals: Serg Avalos MD [Primary Care Provider] - Stand Alone Forms: Patient Portal/API
== END 2024-06-10 20:03 | disposition home or self-care (01) ==
PROVIDERS: Emergency Provider Emergency Medicine; PCP Family Medicine
DX: R42 Dizziness and giddiness (principal); R03.1 Nonspecific low blood-pressure reading
CPT/HCPCS: 80053; 80320; 82550; 83690; 84484; 85025; 93005; 99283

== ENCOUNTER → 2024-06-19 11:06 | Outpatient (CLI) | payer MEDICARE, OTHER, SELFPAY ==
[2024-06-19 12:10] LABS: Hemoglobin A1C% w Est Avg Glu 6.5 % (4.0-6.0)
[2024-06-19 12:29] LABS: BUN Creatinine Ratio 16.7 (6-22); Blood Urea Nitrogen 22 mg/dL (7-17); Calcium 9.5 mg/dL (8.4-10.2); Carbon Dioxide 28 mmol/L (22-32); Chloride 106 mmol/L (98-107); Estimated Glomerular Filt Rate 39 mL/min (>60); Glucose 115 mg/dL (80-110); HEMOLYSIS < 15 (0-50); Potassium 4.8 mmol/L (3.4-5.1); Sodium 140 mmol/L (137-145)
[2024-06-19 13:16] LABS: Vitamin B12 844 pg/mL (239-931)
[2024-06-19 15:25] LABS: Vitamin D 25 Hydroxy (D3) 58.4 ng/mL (30.0-100.0)
== END ==
PROVIDERS: PCP Family Medicine; Referring Provider Physician Assistant; Visit Provider Physician Assistant
DX: R73.01 Impaired fasting glucose (principal); M81.0 Age-related osteoporosis without current pathological fracture; N18.9 Chronic kidney disease, unspecified; R53.83 Other fatigue
CPT/HCPCS: 36415; 80048; 82306; 82607; 83036

== ENCOUNTER → 2024-07-12 10:46 | Outpatient (CLI) | payer MEDICARE, OTHER, SELFPAY ==
--- NOTE | 2024-07-12 | DI.MG.S_ITS ---
BILATERAL DIGITAL SCREENING MAMMOGRAM 3D/2D WITH CAD: 07/12/2024 CLINICAL: Routine screening. Comparison is made to exams dated: 07/10/2023 mammogram, 07/01/2022 mammogram, 06/25/2021 mammogram, 05/12/2020 mammogram, 04/28/2019 mammogram, and 04/26/2018 mammogram - [facility]. There are scattered areas of fibroglandular density (category b / 25%-50% glandular tissue). Current study was also evaluated with a Computer Aided Detection (CAD) system. There are benign calcifications in both breasts. There also are benign vascular calcifications in both breasts. No significant masses, calcifications, or other findings are seen in either breast. There has been no significant interval change. IMPRESSION: BENIGN There is no mammographic evidence of malignancy. A 1 year screening mammogram is recommended. This exam was interpreted at Station ID: [id number]. NOTE: For mammograms, a report in lay terms will be sent to the patient. Approximately 15% of breast malignancies will not be visualized mammographically. In the management of a palpable breast mass, a negative mammogram must not discourage biopsy of a clinically suspicious lesion. Electronically Signed By: Ammy Arreguin M.D., Ph.D. malena/anthony:07/15/2024 00:37:30 letter sent: Normal Exam ACR BI-RADS Category 2: Benign
== END ==
PROVIDERS: PCP Family Medicine; Referring Provider Family Medicine; Visit Provider Family Medicine
DX: Z12.31 Encounter for screening mammogram for malignant neoplasm of breast (principal)
CPT/HCPCS: 77063; 77067

== ENCOUNTER → 2024-07-29 11:35 | Outpatient (CLI) | payer MEDICARE, OTHER, SELFPAY ==
[2024-07-29 13:42] LABS: COVID-19 CEPHEID 4-PLEX PCR Negative (Negative); Influenza A - CEPHEID Flu A NEGATIVE (NEGATIVE); Influenza B - CEPHEID Flu B NEGATIVE (NEGATIVE)
== END ==
PROVIDERS: PCP Family Medicine; Visit Provider Physician Assistant
DX: R05.9 Cough, unspecified (principal)
CPT/HCPCS: 0240U

== ENCOUNTER → 2024-07-29 11:45 | Outpatient (CLI) | payer MEDICARE, OTHER, SELFPAY ==
[2024-07-29 12:40] LABS: Hemoglobin A1C% w Est Avg Glu 6.6 % (4.0-6.0)
[2024-07-29 12:59] LABS: BUN Creatinine Ratio 19.8 (6-22); Blood Urea Nitrogen 23 mg/dL (7-17); Calcium 9.3 mg/dL (8.4-10.2); Carbon Dioxide 27 mmol/L (22-32); Chloride 104 mmol/L (98-107); Estimated Glomerular Filt Rate 46 mL/min (>60); Glucose 148 mg/dL (80-110); HEMOLYSIS 19 (0-50); Potassium 4.3 mmol/L (3.4-5.1); Sodium 139 mmol/L (137-145)
[2024-07-29 13:28] LABS: Creatinine Urine Random 161.21 mg/dL
[2024-07-29 13:35] LABS: Microalbumin Urine Random 2.9 mg/dL (0-1.6)
== END ==
PROVIDERS: PCP Family Medicine; Referring Provider Physician Assistant; Visit Provider Physician Assistant
DX: E11.9 Type 2 diabetes mellitus without complications (principal); N18.2 Chronic kidney disease, stage 2 (mild)
CPT/HCPCS: 0240U; 36415; 80048; 82043; 82570; 83036

== ENCOUNTER → 2024-09-09 13:18 | Outpatient (CLI) | payer MEDICARE, OTHER, SELFPAY ==
--- NOTE | 2024-09-12 10:09 | DIET.OUTPTC ---
Dietary Outpatient Consultation Note Consultation Date: 09/09/2024 Assessment: 84 y F referred to dietitian for type 2 diabetes and CKD. Pt wanting to focus on nutrition and management of T2DM today in light of recent dx. Reports going to nephrology when back from NH and will f/u to discuss nutrition and CKD management afterwards. A1c 6.6% on most recent labs. Since being dx with T2DM she has cut out nightly ice cream. Since visit to ED for dizziness/low BP after having sugary alcoholic drink, has stopped drinking alcohol. Diet recall: B- small bowl cereal, milk, fruit, 1 sl toast ww, coffee black -3-3.5 serving CHO L-small snack-1/2 pb sandwich or cheese and tomatoes or handful nuts or belvita bar- not very hungry 4p cheese and crackers (1-2 oz cheese, 1 serving crackers), fruit 1/2 to 1 serving D- meat, 1/2 c or less grain, veg 2x/wk has fish Night snack used to have 2 cookies, has rajesh crackers now Since stopping alcohol has been having sugar sweetened beverage to substitute. I.e. 7up soda, laurie mix, mocktails. Nutrition Diagnosis: Altered nutrition related lab values (A1c) r/t endocrine dysfunction aeb A1c 6.6% Nutrition Intervention- discussed and provided resources on following- HgA1c, its correlation to blood glucose numbers Plate Method, impact of macronutrients on blood sugar, meal timing, carbohydrate counting, pairing macronutrients and spreading out carbohydrates for better blood glucose management Recommended servings for carbohydrates at meals and snacks 2-3 CHO servings at meals, 1-2 CHO servings at snacks Drink alternatives for sugar sweetened beverages Label reading Maintaining quality of life with allowing desserts in moderation Goals: Choosing lower sugar or no sugar added drink alternatives, but can keep added sugar beverages at her social outings 1-3x/wk for quality of life (typically does 6-8 oz serving) 1-2 servings CHO night snack with protein paired and spaced from dinner meal Continue changes pt has already made, include desserts in moderation/portion as desired to maintain quality of life (reducing ice cream per week, cookies to rajesh crackers for snack) Monitoring and eval: f/u when pt returns from NH after nephrology appt Electronically Signed by: Cass Child 09/12/24 10:09 Clinical Dietitian [address] [id number]
== END ==
PROVIDERS: PCP Family Medicine; Referring Provider Family Medicine
DX: E11.22 Type 2 diabetes mellitus with diabetic chronic kidney disease (principal); N18.9 Chronic kidney disease, unspecified; Z71.3 Dietary counseling and surveillance
CPT/HCPCS: 97802

== ENCOUNTER → 2025-03-04 11:27 | Outpatient (CLI) | payer MEDICARE, OTHER, SELFPAY ==
[2025-03-04 12:08] LABS: INR 3.2 (0.9-1.3); Prothrombin Time 34.8 SECONDS (9.4-12.5)
== END ==
PROVIDERS: PCP Family Medicine; Referring Provider Family Medicine; Visit Provider Family Medicine
DX: I82.90 Acute embolism and thrombosis of unspecified vein (principal); Z51.81 Encounter for therapeutic drug level monitoring; Z79.01 Long term (current) use of anticoagulants
CPT/HCPCS: 36415; 85610

== ENCOUNTER → 2025-04-01 09:46 | Outpatient (CLI) | payer MEDICARE, OTHER, SELFPAY ==
[2025-04-01 12:13] LABS: Hematocrit 39.8 % (36-46); Hemoglobin 13.6 g/dL (12.0-16.0)
[2025-04-01 12:35] LABS: BUN Creatinine Ratio 14.8 (6-22); Blood Urea Nitrogen 17 mg/dL (7-17); Calcium 9.3 mg/dL (8.4-10.2); Carbon Dioxide 28 mmol/L (22-32); Chloride 104 mmol/L (98-107); Estimated Glomerular Filt Rate 46 mL/min (>60); Glucose 164 mg/dL (70-99); HEMOLYSIS < 15 (0-50); Potassium 4.3 mmol/L (3.4-5.1); Sodium 139 mmol/L (137-145)
== END ==
PROVIDERS: PCP Family Medicine; Referring Provider Student in an Organized Health Care Education/Training Program; Visit Provider Student in an Organized Health Care Education/Training Program
DX: D70.9 Neutropenia, unspecified (principal); D63.1 Anemia in chronic kidney disease; N05.9 Unspecified nephritic syndrome with unspecified morphologic changes; R80.9 Proteinuria, unspecified
CPT/HCPCS: 36415; 80048; 85014; 85018

== ENCOUNTER → 2025-04-14 09:53 | Outpatient (CLI) | payer MEDICARE, OTHER, SELFPAY ==
[2025-04-14 10:17] LABS: Add Manual Diff / Slide Review NO; Hematocrit 37.3 % (36-46); Hemoglobin 13.2 g/dL (12.0-16.0); Lymphocytes Absolute Auto 1100 /uL (1100-4500); Mean Corpuscular HGB Conc 35.4 % (30-36); Mean Corpuscular Hemoglobin 32.0 PG (26-34); Mean Corpuscular Volume 90.4 fL (80-100); Platelet Count 213 X10^3/uL (150-400)
[2025-04-14 10:27] LABS: Hemoglobin A1C% w Est Avg Glu 6.2 % (4.0-6.0)
[2025-04-14 10:49] LABS: Vitamin D 25 Hydroxy (D3) 51.4 ng/mL (30.0-100.0)
[2025-04-14 11:22] LABS: Alanine Aminotransferase 23 IU/L (<35); Albumin 3.8 g/dL (3.5-5.0); Albumin Globulin Ratio 1.7 (1.0-2.8); Alkaline Phosphatase 78 U/L (38-126); Blood Urea Nitrogen 21 mg/dL (7-17); Calcium 9.1 mg/dL (8.4-10.2); Carbon Dioxide 25 mmol/L (22-32); Chloride 107 mmol/L (98-107); Cholesterol 162 mg/dL (140-199); Estimated Glomerular Filt Rate 45 mL/min (>60); Globulin 2.2 g/dL (1.7-4.1); Glucose 118 mg/dL (70-99); HDL Cholesterol 57 mg/dL (40-60); HEMOLYSIS < 15 (0-50); Potassium 4.2 mmol/L (3.4-5.1); Sodium 139 mmol/L (137-145); Total Protein 6.0 g/dL (6.3-8.2); Triglycerides 97 mg/dL (35-150)
[2025-04-14 16:36] LABS: Microalbumi Creatinin Ratio Ur 29.0 ug/mg CR (<30)
== END ==
PROVIDERS: PCP Family Medicine; Referring Provider Family Medicine; Visit Provider Family Medicine
DX: E11.9 Type 2 diabetes mellitus without complications (principal); M81.0 Age-related osteoporosis without current pathological fracture; E78.2 Mixed hyperlipidemia; N18.2 Chronic kidney disease, stage 2 (mild); I10 Essential (primary) hypertension
CPT/HCPCS: 36415; 80053; 80061; 82043; 82306; 82570; 83036; 85025

== ENCOUNTER → 2025-05-11 10:18 | Outpatient (CLI) | payer MEDICARE, OTHER, SELFPAY ==
[2025-05-11 11:14] LABS: INR 2.0 (0.9-1.3); Prothrombin Time 22.2 SECONDS (9.4-12.5)
== END ==
PROVIDERS: PCP Family Medicine; Referring Provider Family Medicine; Visit Provider Family Medicine
DX: Z51.81 Encounter for therapeutic drug level monitoring (principal); Z79.01 Long term (current) use of anticoagulants; I82.90 Acute embolism and thrombosis of unspecified vein
CPT/HCPCS: 36415; 85610

== ENCOUNTER → 2025-05-14 14:15 | Outpatient (CLI) | payer MEDICARE, OTHER, SELFPAY ==
--- NOTE | 2025-05-14 14:16 | DI.RAD.S_ITS ---
PROCEDURE: XR HIP W PEL IF DONE RT 2V INDICATIONS: back pain TECHNIQUE: Two views of the right hip were acquired. COMPARISON: [facility], CR, XR HIP W PEL IF DONE FABRICE 3TO4V, 08/17/2022, 13:52. FINDINGS: Bones: There are no osseous abnormalities. SI and hip joints: Moderate right and moderate/ severe left hip degeneration has progressed from 2021. Mild bilateral SI degeneration also progressing. Severe L4-5 and L5-S1 degenerative disc and facet disease. Soft tissues: Moderate vascular calcification seen within the abdominal aorta and iliofemoral vessels IMPRESSION: Degeneration progressing from prior exam Dictated by: Aristeo Cole M.D. on 05/15/2025 at 9:44 Approved by: Aristeo Cole M.D. on 05/15/2025 at 9:46
--- NOTE | 2025-05-14 14:16 | DI.RAD.S_ITS ---
PROCEDURE: XR LUMBAR SPINE 2-3V INDICATIONS: back pain TECHNIQUE: 3 views of the lumbar spine were acquired. COMPARISON: None. FINDINGS: Lumbar spine curvature and alignment: Moderate levoscoliosis appreciated. Bones: There are no osseous abnormalities. Disc spaces: Moderate T12-L1, mild L1-2 Severe L2-3 mild L3-4, moderate L4-5 mild L5-S1 degenerative disc disease appreciated. There is also severe degenerate facet disease L3-4 through L5-S1 Soft tissues: No soft tissue swelling, calcification or mass. IMPRESSION: Degeneration Dictated by: Aristeo Cole M.D. on 05/15/2025 at 9:46 Approved by: Aristeo Cole M.D. on 05/15/2025 at 9:47
== END ==
PROVIDERS: PCP Family Medicine; Referring Provider Family Medicine; Visit Provider Family Medicine
DX: M51.16 Intervertebral disc disorders with radiculopathy, lumbar region (principal); M47.26 Other spondylosis with radiculopathy, lumbar region; M51.379 Other intervertebral disc degeneration, lumbosacral region without mention of lumbar back pain or lower extremity pain; M47.817 Spondylosis without myelopathy or radiculopathy, lumbosacral region; M41.9 Scoliosis, unspecified; M16.0 Bilateral primary osteoarthritis of hip; M54.9 Dorsalgia, unspecified; Z97.5 Presence of (intrauterine) contraceptive device
CPT/HCPCS: 72100; 73502

== ENCOUNTER → 2025-07-07 09:56 | Outpatient (CLI) | payer MEDICARE, OTHER, SELFPAY ==
[2025-07-07 10:38] LABS: Hemoglobin 13.3 g/dL (12.0-16.0)
[2025-07-07 11:14] LABS: Albumin 3.9 g/dL (3.5-5.0); Blood Urea Nitrogen 34 mg/dL (7-17); Calcium 9.3 mg/dL (8.4-10.2); Carbon Dioxide 27 mmol/L (22-32); Chloride 103 mmol/L (98-107); Estimated Glomerular Filt Rate 35 mL/min (>60); Glucose 202 mg/dL (70-99); HEMOLYSIS < 15 (0-50); Phosphorous 3.2 mg/dL (2.8-4.1); Potassium 3.9 mmol/L (3.4-5.1); Sodium 138 mmol/L (137-145)
[2025-07-07 11:51] LABS: Protein (Total) Urine Random 9 mg/dL (0-12); Protein Creatinine Ratio Urine 0.07 GRAM/24H
[2025-07-09 07:40] LABS: Calcium 9.1 mg/dL (8.7-10.3); Parathyroid Hormone, Intact 87 pg/mL (15-65)
== END ==
PROVIDERS: Family Provider Family Medicine; PCP Family Medicine; Referring Provider Student in an Organized Health Care Education/Training Program; Visit Provider Student in an Organized Health Care Education/Training Program
DX: N18.32 Chronic kidney disease, stage 3b (principal)
CPT/HCPCS: 36415; 80069; 82310; 82570; 83970; 84156; 85018; 85610

== ENCOUNTER → 2025-07-13 12:14 | Outpatient (CLI) | payer MEDICARE, OTHER, SELFPAY ==
--- NOTE | 2025-07-13 12:14 | DI.MG.S_ITS ---
MM screening mammo BI: 07/13/2025. BI-RADS: 2 CLINICAL: 85-year old female for bilateral screening mammogram. No Tyrer-Cuzick risk score calculation due to patient's age being over 85 years old. No personal or first-degree family history of breast cancer. PRIOR EXAMS 07/12/2024, 07/10/2023, 07/01/2022, 06/25/2021. MAMMOGRAPHY TECHNIQUE: 2D and 3D (tomosynthesis) digital mammographic views obtained, with additional images as needed for full coverage. Current study was also evaluated with a Computer Aided Detection (CAD) system. DENSITY B. There are scattered areas of fibroglandular density. MAMMOGRAPHY FINDINGS Bilateral: Benign-appearing calcifications noted. There are no suspicious masses, calcifications, or other findings in the breast. IMPRESSION: * No evidence of malignancy with benign findings. RECOMMENDATIONS Bilateral * Annual screening mammography. OVERALL ASSESSMENT CATEGORY BI-RADS-2: Benign. The [employer] [place] [employer] recommends annual screening mammography beginning at age 40 for women with average risk of breast cancer. ELECTRONICALLY SIGNED: Radha Brown M.D. on 07/13/2025 at 11:44:32 PM PT Interpreting Station ID: [id number]
== END ==
LOC: MAMMO 12:14
PROVIDERS: Family Provider Family Medicine; PCP Family Medicine; Referring Provider Family Medicine; Visit Provider Family Medicine
DX: Z12.31 Encounter for screening mammogram for malignant neoplasm of breast (principal)
CPT/HCPCS: 77063; 77067

== ENCOUNTER → 2025-07-15 11:16 | Outpatient (CLI) | payer MEDICARE, OTHER, SELFPAY ==
[2025-07-15 12:14] LABS: Appearance Urine UA SL CLOUDY; Bilirubin Urine UA NEGATIVE (NEGATIVE); Color Urine UA YELLOW; Glucose Urine UA NEGATIVE (Negative); Ketones Urine UA NEGATIVE (NEGATIVE); Leukocyte Esterase Urine UA 1+ (NEGATIVE); Nitrite Urine UA POSITIVE (Negative); Occult Blood Urine UA NEGATIVE (Negative); Protein Urine UA NEGATIVE (Negative); Specific Gravity Urine UA 1.020 (1.000-1.035); Urobilinogen Urine UA 0.2 E.U./dL (0.2)
[2025-07-15 12:17] LABS: pH Urine UA 5.5 (4.5-8.0)
[2025-07-15 12:19] LABS: Culture Indicated Urine Specimen Cultured
== END ==
PROVIDERS: Family Provider Family Medicine; PCP Family Medicine; Referring Provider Student in an Organized Health Care Education/Training Program; Visit Provider Student in an Organized Health Care Education/Training Program
DX: N30.00 Acute cystitis without hematuria (principal)
CPT/HCPCS: 81001; 87077; 87086; 87186

== ENCOUNTER 2025-08-14 14:30 | Outpatient (RCR) | payer MEDICARE, OTHER, SELFPAY ==
--- NOTE | 2025-05-26 18:34 | PT.OPPOC ---
Physical, Occupational & Speech Therapy At [facility] Current Diagnoses Pain in unspecified hip (05/28/25) Pain in unspecified knee (05/28/25) Radiculopathy, lumbar region (05/28/25) Dorsalgia, unspecified (05/28/25) Visit Care Team Role Provider Type Serg Avalos MD Attending Provider Physician Family Provider Primary Care Provider Referring Provider Specialty: Family Practice Address: [address] [place] [address], [address], [address] Email: [email or web address] Plan Of Care PT OP: Lower Back/Lower Extremity Start: 05/26/25 13:06 Freq: Status: Active Protocol: Document 05/26/25 13:07 SMELTER OPERATOR (Rec: 05/26/25 13:54 SMELTER OPERATOR Laptop) Out-Patient Physical Therapy Visit Information Visit Information Visit Type Initial Evaluation Visit Start Time 13:05 Visit Stop Time 13:54 Visit Number 1 Number of PATIENT COORDINATOR Visits 0 Progress Note Due 06/25/25 Current Condition History of Current Condition Onset Date 3 weeks ago Current Complaints R low back and RLE pain History of Current Pt amb into session very slowly with quad cane in R Condition hand. Pt reports ~3 weeks ago she was sitting on a bench gardening, twisting and pulling when it initiated pain to R low back and RLE down ant leg to mid diggs. Pt reports she has osteopenia on L hip and states that sometimes she feels like she is going to fall from both sides being impaired. Pt is currently wearing a lidocaine patch to R low back which she reports helps with pain. Pain has slightly gotten better since initial injury. Uses cane from broken R ankle ~4 years ago. Had a fall in December 2024 where she had PNA and didn't know it, was standing in the bathroom and fell d /t weakness hitting back of head on door jam, feels she has fully recovered since then. Pt reports she is unable to go down stairs to basement, can't bend down, slow to lower down to sit and stand up from sitting, can't stand or sit for long amounts of time, cooking and cleaning house, working in flower beds weeding have all been very difficult to do since injury. House is equipped with elevated toilet seat, grab bars, has a ramp to enter home. is with pt in session and has hx of L back surgery causing him to require more assistance with IADLs. Is taking Sciati[employer] and pt reports this has helped her pain. Treatment Goals Patient/Caregiver To be able to move and do what I need to do again, I Goals need to be able to help my . Patient Questionnaires Lower Extremity Functional Scale LEFS Score 15/80 LEFS Impairment 80 to 99% Impaired (Score 1-16) Manual Assessments Soft Tissue Assessment Soft Tissue Mobility decreased soft tissue mobility and very TTP to R Assessment piriformis, glute med, mid ITB, lumbar paraspinals/ multifidi Hip Strength Hip Manual Muscle Testing L Flexion (L2) 4 Good Extension (S1) 4 Good Abduction 4 Good Comments 90/90: 125 degrees R Flexion (L2) 4- Good- Extension (S1) 3- Fair- Abduction 4- Good- Comments Painful hip abd PROM R hip flex WNL without pain 90/90: 125 degrees Knee Strength Knee Manual Muscle Testing L Flexion (S2) 4+ Good+ Extension (L3) 3- Fair- R Flexion (S2) 4 Good Extension (L3) 4 Good Ankle/Foot Strength Ankle and Foot Manual Muscle Testing L Dorsiflexion (L4) 5 Normal Plantarflexion (S1) 4+ Good+ R Dorsiflexion (L4) 5 Normal Plantarflexion (S1) 4+ Good+ Physical Therapy Assessment Rehab Potential Rehabilitation Good Potential Evaluation Complexity Number of Personal 3 or More Factors/ Comorbidities Clinical Evolving Presentation at Evaluation Impairments Impairments Activity Tolerance,Balance,Functional Activities, Functional Mobility,Gait,Pain,ROM,Soft Tissue Mobility, Strength,Transfers Goals 3 Impairment LEFS Impairment On eval: 15/80 Short Term Goal (STG Pt will score at least 30/80 on LEFS in order to ) improve functional mobility. STG Duration 07/07/25 Halfway Goal (LTG) Pt will score at least 50/80 on LEFS in order to improve functional mobility. LTG Duration 08/18/25 2 Impairment Sit<>stand Impairment difficult sit<>stand with increased time d/t pain Intranet Specialist Goal (LTG) Pt will perform at least 11 on 30s STS test without use of UEs in order to perform within norms for age range and improve functional mobility. LTG Duration 08/18/25 1 Impairment Stairs Impairment Unable to negotiate ~12 stairs down to basement Intranet Specialist Goal (LTG) Pt will ascend and descend 12x6 stairs with 0-1 HR with reciprocal pattern ind. LTG Duration 08/18/25 Assessment Summary Assessment Pt presents with low back and R hip pain with radiation down RLE after sitting, twisting, and pulling while gardening. Pt found to have decreased B hip strength, decreased B hip muscle flexibility, impaired gait with decreased RLE WB and use of quad cane, and decreased sitting and standing balance with need to lay down during evaluation. Pt will benefit from skilled PT intervention to address deficits and improve functional mobility and safety. Physical Therapy Plan Frequency and Duration Frequency of 2x/Week Treatment Duration of 12 treatment (weeks) Plan of Care Start 05/26/25 Date Plan of Care End 08/18/25 Date Therapeutic Interventions Therapeutic Balance Training,Gait Training,Home Exercise Program, Interventions Joint Mobilizations,Manual Therapy,Neuromuscular Re- education,Orthotic/Prosthetic Management,Patient/ Caregiver Education,Self-Care/Home Management,Soft Tissue Mobilization,Therapeutic Activities,Therapeutic Exercises Modalities Cold Pack/Ice Massage,Hot Packs,Iontophoresis, Ultrasound Next Visit Focus/Plan Next Note Type Treatment Note Next Visit Plan BLE exercise and stretch HEP, assess stairs Plan of Care Dates Plan of Care Start Date 05/26/25 Plan of Care End Date 08/18/25 Electronically Signed by: Gale Clayton, PT 05/29/25 3116 If you are in agreement with this Plan of Care, please return a signed and dated copy. I have reviewed this Plan of Care and certify that the skilled therapy services above are required to meet the patient?s needs. Physician Signature Date Printed Name and Credentials Clinical Instructor Signature Printed Name and Credentials
--- NOTE | 2025-05-28 18:00 | PT.OTN ---
Current Diagnoses Pain in unspecified hip (05/28/25) Pain in unspecified knee (05/28/25) Radiculopathy, lumbar region (05/28/25) Dorsalgia, unspecified (05/28/25) Physical Therapy Treatment Note PT OP: Lower Back/Lower Extremity Start: 05/26/25 13:06 Freq: Status: Active Protocol: Document 05/28/25 16:20 ACCOUNTS PAYABLE ASSISTANT (Rec: 06/02/25 19:25 ACCOUNTS PAYABLE ASSISTANT Laptop) Out-Patient Physical Therapy Visit Information Visit Information Visit Type Treatment Note Visit Start Time 16:20 Visit Stop Time 17:05 Visit Number 2 Number of NEUROPSYCHOLOGY DIRECTOR Visits 0 Progress Note Due 06/25/25 OP-PT Subjective Patient Comments Patient Comments Pt reports current pain 5/10 to R ant hip and R knee, no changes since eval. Therapeutic Exercises Supine Exercises SAQs Side bilateral Equipment Used on bolster Reps/Minutes x10 Comments without pain Glute sets Side bilateral Reps/Minutes 10x2 Comments without pain, advanced to bridges Bridges Side bilateral Reps/Minutes 10x2 Comments Added to HEP with HO Adductor stretch Supine Exercise Name single leg butterfly stretch Side bilateral Reps/Minutes 1 min x2 Comments added to HEP with HO Sidelying Exercises Clamshells Side bilateral Reps/Minutes 10x2 each side Comments noted tightness to L inner thigh, added to HEP with HO Manual Therapy Treatment Consent Patient gave verbal Yes consent for manual treatment Soft Tissue Mobilization Upper leg Body Location R quad, ITB, glute med, piriformis Mobilization Type Myofascial Release,Rolling Intensity/Depth Superficial Body Position Sidelying Comments tolerated gentle STM with positive response, recommended icing after getting home Joint Mobilizations Patella Direction medial Grade III Body Position Supine Reps/Duration x10 Comments noted decreased R patellar mobility, slight knee flexion on bolster, positive response Physical Therapy Assessment Goals 3 Impairment LEFS Impairment On eval: 15/80 Short Term Goal (STG Pt will score at least 30/80 on LEFS in order to ) improve functional mobility. STG Duration 07/07/25 Intermediate Goal (LTG) Pt will score at least 50/80 on LEFS in order to improve functional mobility. LTG Duration 08/18/25 2 Impairment Sit<>stand Impairment difficult sit<>stand with increased time d/t pain Event Services Manager Goal (LTG) Pt will perform at least 11 on 30s STS test without use of UEs in order to perform within norms for age range and improve functional mobility. LTG Duration 08/18/25 1 Impairment Stairs Impairment Unable to negotiate ~12 stairs down to basement Intermediate Goal (LTG) Pt will ascend and descend 12x6 stairs with 0-1 HR with reciprocal pattern ind. LTG Duration 08/18/25 Assessment Summary Assessment Pt tolerated STM and med R patellar joint mobs well, tolerated hip strengthening exercises and noted significant B L>R adductor tightness, HEP with HO given this session. Physical Therapy Plan Frequency and Duration Frequency of 2x/Week Treatment Duration of 12 treatment (weeks) Plan of Care Start 05/26/25 Date Plan of Care End 08/18/25 Date Next Visit Focus/Plan Next Note Type Treatment Note Next Visit Plan review HEP, add glute and HS stretching, trial jose stretch, add TA exercise
--- NOTE | 2025-06-11 20:01 | PT.OTN ---
Current Diagnoses Pain in unspecified hip (06/11/25) Pain in unspecified knee (06/11/25) Radiculopathy, lumbar region (06/11/25) Dorsalgia, unspecified (06/11/25) Physical Therapy Treatment Note PT OP: Lower Back/Lower Extremity Start: 05/26/25 13:06 Freq: Status: Active Protocol: Document 06/11/25 15:25 JAZZ MUSICIAN (Rec: 06/11/25 16:13 JAZZ MUSICIAN Laptop) Out-Patient Physical Therapy Visit Information Visit Information Visit Type Treatment Note Visit Start Time 15:25 Visit Stop Time 16:05 Visit Number 3 Number of EVP OPERATIONS Visits 0 Progress Note Due 06/25/25 OP-PT Subjective Patient Comments Patient Comments Pt amb into session with kaushik cane reporting she just came from her doctor for vertigo and will take 2-3 days to improve. She reports aside from current vertigo, she is moving around the house better, is practicing HEP 1x/day. Pt reports 2/10 in R ant groin. Therapeutic Exercises Supine Exercises DKTC Side bilateral Reps/Minutes 1 min Comments positive results TA activation Reps/Minutes x10 Comments VC for breathing Hip flex ball rolls Side bilateral Equipment Used medium exercise ball Reps/Minutes x10 Comments without pain, VC for breathing Nerve glides Supine Exercise Name 1. knees flexed on wedge DF/PF 2. knees flexed and ext on ball DF/PF Side bilateral Equipment Used wedge, medium exercise ball Reps/Minutes x10 each Comments feels nerve tension on R foot with knee extended on ball in DF Hip flexor stretch Side right Reps/Minutes 1 min x2 Adductor stretch Supine Exercise Name straight leg one leg at a time Side bilateral Reps/Minutes 1 min each Physical Therapy Assessment Goals 3 Impairment LEFS Impairment On eval: 15/80 Short Term Goal (STG Pt will score at least 30/80 on LEFS in order to ) improve functional mobility. STG Duration 07/07/25 Taxi Driver Supervisor Goal (LTG) Pt will score at least 50/80 on LEFS in order to improve functional mobility. LTG Duration 08/18/25 2 Impairment Sit<>stand Impairment difficult sit<>stand with increased time d/t pain Taxi Driver Supervisor Goal (LTG) Pt will perform at least 11 on 30s STS test without use of UEs in order to perform within norms for age range and improve functional mobility. LTG Duration 08/18/25 1 Impairment Stairs Impairment Unable to negotiate ~12 stairs down to basement Intermediate Goal (LTG) Pt will ascend and descend 12x6 stairs with 0-1 HR with reciprocal pattern ind. LTG Duration 08/18/25 Assessment Summary Assessment Pt tolerated B hip stretching, nerve flossing, and initiation of TA activation this session, continues to have significant tightness to B adductors. Physical Therapy Plan Frequency and Duration Frequency of 2x/Week Treatment Duration of 12 treatment (weeks) Plan of Care Start 05/26/25 Date Plan of Care End 08/18/25 Date Next Visit Focus/Plan Next Note Type Treatment Note Next Visit Plan Add TA exercise and nerve flossing to HEP, continue B adductor stretching
--- NOTE | 2025-06-17 13:52 | PT.OTN ---
Current Diagnoses Pain in unspecified hip (06/17/25) Pain in unspecified knee (06/17/25) Radiculopathy, lumbar region (06/17/25) Dorsalgia, unspecified (06/17/25) Physical Therapy Treatment Note PT OP: Lower Back/Lower Extremity Start: 05/26/25 13:06 Freq: Status: Active Protocol: Document 06/17/25 13:05 MEDICAID BILLING SPECIALIST (Rec: 06/17/25 13:52 MEDICAID BILLING SPECIALIST Laptop) Out-Patient Physical Therapy Visit Information Visit Information Visit Type Treatment Note Visit Start Time 13:05 Visit Stop Time 13:50 Visit Number 4 Number of CYTOLOGY MANAGER Visits 0 Progress Note Due 06/25/25 OP-PT Subjective Patient Comments Patient Comments Pt amb into session with quad cane. Reports decreased pain during the day because she takes rest breaks but has the most pain at night in R knee making it difficult to find a comfortable position and sleep. Current pain 3-4/10 in R knee and B groin. Vertigo has not gotten better, pharmacist says current medication side affect can make her dizzy and feels fuzzy in her head, plans to ask for new medication. Therapeutic Exercises Supine Exercises TA activation Supine Exercise Name 1. PPT 2. PPT with inhale/exhale Side bilateral Reps/Minutes x10 each Comments VC for breathing and keeping C muscles relaxed, Added to HEP with HO Hip flex ball rolls Side bilateral Equipment Used large exercise ball Reps/Minutes x10 Comments without pain, VC for breathing Nerve glides Supine Exercise Name knees flexed on large exercise ball DF/PF Side bilateral Equipment Used large exercise ball Reps/Minutes x10 each Comments Added to HEP with HO Hip flexor stretch Side bilateral Reps/Minutes 1 min each Comments added to HEP with HO Adductor stretch Supine Exercise Name hooklying position, one leg at a time Side bilateral Reps/Minutes 30s x2 each leg Comments added to HEP with HO Manual Therapy Treatment Consent Patient gave verbal Yes consent for manual treatment Soft Tissue Mobilization Upper leg Body Location B quads Mobilization Type Myofascial Release,Rolling Intensity/Depth Superficial/moderate Body Position Hooklying Comments quad insertion towards origin Physical Therapy Assessment Goals 3 Impairment LEFS Impairment On eval: 15/80 Short Term Goal (STG Pt will score at least 30/80 on LEFS in order to ) improve functional mobility. STG Duration 07/07/25 Director Of Business Development Goal (LTG) Pt will score at least 50/80 on LEFS in order to improve functional mobility. LTG Duration 08/18/25 2 Impairment Sit<>stand Impairment difficult sit<>stand with increased time d/t pain Alf Goal (LTG) Pt will perform at least 11 on 30s STS test without use of UEs in order to perform within norms for age range and improve functional mobility. LTG Duration 08/18/25 1 Impairment Stairs Impairment Unable to negotiate ~12 stairs down to basement Alf Goal (LTG) Pt will ascend and descend 12x6 stairs with 0-1 HR with reciprocal pattern ind. LTG Duration 08/18/25 Assessment Summary Assessment Pt tolerated all stretching and core exercises well with significant tightness noted in B quads, improved after STM and nerve glides. Physical Therapy Plan Frequency and Duration Frequency of 2x/Week Treatment Duration of 12 treatment (weeks) Plan of Care Start 05/26/25 Date Plan of Care End 08/18/25 Date Next Visit Focus/Plan Next Note Type Treatment Note Next Visit Plan Review new HEP, sitting or standing hip exercises
--- NOTE | 2025-06-19 16:42 | PT.OTN ---
Current Diagnoses Pain in unspecified hip (06/19/25) Pain in unspecified knee (06/19/25) Radiculopathy, lumbar region (06/19/25) Dorsalgia, unspecified (06/19/25) Physical Therapy Treatment Note PT OP: Lower Back/Lower Extremity Start: 05/26/25 13:06 Freq: Status: Active Protocol: Document 06/19/25 15:58 NBM (Rec: 06/19/25 16:42 NBM Laptop) Out-Patient Physical Therapy Visit Information Visit Information Visit Type Treatment Note Visit Start Time 14:45 Visit Stop Time 15:23 Visit Number 5 Number of HOG ROOM SUPERVISOR Visits 1 Progress Note Due 06/25/25 OP-PT Subjective Patient Comments Patient Comments Radha reports low back pain today. Left leg hurts when doing the groin stretch. She switched pain meds last Sunday evening but pharmacist told her it will take a while for fogginess to improve, and she feels a bit foggy so is using her quad cane. Therapeutic Exercises Supine Exercises TA activation Supine Exercise Name 1. PPT 2. PPT with inhale/exhale Side bilateral Reps/Minutes x10 each Comments VC for breathing and keeping C muscles relaxed - HEP review Hip flex ball rolls Side bilateral Equipment Used medium exercise ball - red 55 cm Reps/Minutes x10 Comments painfree, VC for breathing Nerve glides Supine Exercise Name knees flexed on large exercise ball DF/PF Side bilateral Equipment Used medium exercise ball - red 55 cm Reps/Minutes x10 each Comments HEP review Hip flexor stretch Side bilateral Equipment Used w/ PPT Reps/Minutes 1 min each Comments HEP review Adductor stretch Supine Exercise Name hooklying position, one leg at a time Side bilateral Equipment Used 2 pillow support for LLE painfree range Reps/Minutes 30s x2 each leg Comments HEP review Sitting Exercises PPT Sitting Exercise added to HEP Name Equipment Used standard mesh chair Reps/Minutes x10 w/ breath Comments painfree Therapeutic Activity Therapeutic Activity log roll Name Pt demos EOB to supine with twisting through lower trunk Comments Pt i/s in log roll from sitting EOB<>sidelying<> hooklying x5 -she demos both L and R sidelying Logroll HO given. Manual Therapy Treatment Consent Patient gave verbal Yes consent for manual treatment Soft Tissue Mobilization Upper leg Body Location B quads Mobilization Type Myofascial Release,Rolling Intensity/Depth Superficial/moderate Body Position Hooklying Comments quad insertion towards origin Physical Therapy Assessment Goals 3 Impairment LEFS Impairment On eval: 15/80 Short Term Goal (STG Pt will score at least 30/80 on LEFS in order to ) improve functional mobility. STG Duration 07/07/25 Granite Fabricator Goal (LTG) Pt will score at least 50/80 on LEFS in order to improve functional mobility. LTG Duration 08/18/25 2 Impairment Sit<>stand Impairment difficult sit<>stand with increased time d/t pain Retirement Goal (LTG) Pt will perform at least 11 on 30s STS test without use of UEs in order to perform within norms for age range and improve functional mobility. LTG Duration 08/18/25 1 Impairment Stairs Impairment Unable to negotiate ~12 stairs down to basement Granite Fabricator Goal (LTG) Pt will ascend and descend 12x6 stairs with 0-1 HR with reciprocal pattern ind. LTG Duration 08/18/25 Assessment Summary Assessment Radha presents with low back pain with ambulation which is improved ambulating out of clinic end of session. Pt reports L adductor pain with L groin stretch and is educated for stretching in painfree range only with use of 2 pillow supports to reduce range. She is in instructed in use of PPT in sitting and during supine hip flexor stretch for pain management and requires occasional cues for breath. She is instructed in log roll method for transition from sitting edge of bed to hooklying to avoid twisting through hips and trunk getting in and out of bed - HO given. Physical Therapy Plan Frequency and Duration Frequency of 2x/Week Treatment Duration of 12 treatment (weeks) Plan of Care Start 05/26/25 Date Plan of Care End 08/18/25 Date Therapeutic Interventions Therapeutic Balance Training,Gait Training,Home Exercise Program, Interventions Joint Mobilizations,Manual Therapy,Neuromuscular Re- education,Orthotic/Prosthetic Management,Patient/ Caregiver Education,Self-Care/Home Management,Soft Tissue Mobilization,Therapeutic Activities,Therapeutic Exercises Modalities Cold Pack/Ice Massage,Hot Packs,Iontophoresis, Ultrasound Next Visit Focus/Plan Next Note Type Treatment Note Next Visit Plan Review new HEP, sitting or standing hip exercises
--- NOTE | 2025-06-23 13:47 | PT.OPPN ---
Current Diagnoses Pain in unspecified hip (06/23/25) Pain in unspecified knee (06/23/25) Radiculopathy, lumbar region (06/23/25) Dorsalgia, unspecified (06/23/25) Physical Therapy Progress Note PT OP: Lower Back/Lower Extremity Start: 05/26/25 13:06 Freq: Status: Active Protocol: Document 06/23/25 13:06 BL (Rec: 06/23/25 13:47 BL Laptop) Out-Patient Physical Therapy Visit Information Visit Information Visit Type Progress Note Visit Start Time 13:00 Visit Stop Time 13:40 Visit Number 6 Number of SUPERVISING DEPUTY Visits 0 Progress Note Due 07/23/25 OP-PT Subjective Patient Comments Patient Comments Pt presents to the clinic this date and reports she is doing well, states her back did fairly well this weekend. States L Leg also feels better with not pushing quite as difficult. Therapeutic Exercises Supine Exercises TA activation Supine Exercise Name 1. PPT 2. PPT with inhale/exhale (reviewed) Side bilateral Reps/Minutes x10 each Comments VC for breathing and keeping C muscles relaxed - HEP review Hip flex ball rolls Side bilateral Equipment Used medium exercise ball - red 55 cm Reps/Minutes x10 Comments painfree, VC for breathing Nerve glides Supine Exercise Name knees flexed on large exercise ball DF/PF Side bilateral Equipment Used medium exercise ball - red 55 cm Reps/Minutes x10 each Comments HEP review Hip flexor stretch Side bilateral Equipment Used w/ PPT Reps/Minutes 1 min each Comments HEP review Manual Therapy Treatment Soft Tissue Mobilization Upper leg Body Location B quads Mobilization Type Myofascial Release,Rolling Intensity/Depth Superficial/moderate Body Position Hooklying Comments quad insertion towards origin Physical Therapy Assessment Goals 3 Impairment LEFS Impairment On eval: 15/80 Short Term Goal (STG Pt will score at least 30/80 on LEFS in order to ) improve functional mobility. (progressing) 06/23/25:per pt report STG Duration 07/07/25 Skilled Nursing Goal (LTG) Pt will score at least 50/80 on LEFS in order to improve functional mobility. (progressing) 06/23/25: per pt report LTG Duration 08/18/25 2 Impairment Sit<>stand Impairment difficult sit<>stand with increased time d/t pain Appraisal Manager Goal (LTG) Pt will perform at least 11 on 30s STS test without use of UEs in order to perform within norms for age range and improve functional mobility. (progressing) 06/23/25: pt able to complete 7 without the use of UE. LTG Duration 08/18/25 1 Impairment Stairs Impairment Unable to negotiate ~12 stairs down to basement Appraisal Manager Goal (LTG) Pt will ascend and descend 12x6 stairs with 0-1 HR with reciprocal pattern ind. (progressing) 06/23/25: Pt able to complete 4 steps with one rail this date, demos decreased stability through R LE. LTG Duration 08/18/25 Assessment Summary Assessment Pt tolerates session well. Pt continues to do well in skilled Physical Therapy intervention. Pt continues to make progress toward all therapy goals. Pt continues to demo decreased functional strength and mobility and will continue to benefit from skilled Physical Therapy interventions for strength and endurance. Physical Therapy Plan Frequency and Duration Frequency of 2x/Week Treatment Duration of 12 treatment (weeks) Plan of Care Start 05/26/25 Date Plan of Care End 08/18/25 Date Next Visit Focus/Plan Next Note Type Treatment Note Next Visit Plan Review new HEP, sitting or standing hip exercises
--- NOTE | 2025-06-26 18:05 | PT.OTN ---
Current Diagnoses Pain in unspecified hip (06/26/25) Pain in unspecified knee (06/26/25) Radiculopathy, lumbar region (06/26/25) Dorsalgia, unspecified (06/26/25) Physical Therapy Treatment Note PT OP: Lower Back/Lower Extremity Start: 05/26/25 13:06 Freq: Status: Active Protocol: Document 06/26/25 10:50 NBM (Rec: 06/26/25 18:05 NBM Laptop) Out-Patient Physical Therapy Visit Information Visit Information Visit Type Treatment Note Visit Start Time 10:50 Visit Stop Time 11:35 Visit Number 7 Number of ROLLER MILL OPERATOR Visits 1 Progress Note Due 07/23/25 OP-PT Subjective Patient Comments Patient Comments Radha reports she over did it yesterday and didn't sleep well. She tried basement stairs which have one landing, rail on R descending then switches to L after landing. She used both hands on one rail. She is using log roll method for getting in and out of bed. Getting into [place] stepped up w/ R holding on to handle and steering wheel and handle broke and R leg couldn't hold her; she was fine but stayed up with upper body. Her chair has three pillows on it. Therapeutic Exercises Sitting Exercises hamstring stretch Sitting Exercise added to HEP - no HO given Name Side bilateral Equipment Used seated mesh chair Reps/Minutes 10 breath cycles ea Comments cues for set up and breath, painfree range only Other Exercises STS Other Exercise Name sit to stand - UE support prn Reps/Minutes x5, dc'd d/t pt fatigue end of session Comments eccentric focus Gait Training Gait Activity ambulation Treatment Focus 2' Comments fwd ambulation with focus on heel strike with gluteal activation and increase hip flexion and upright posture with distant focal point instead of looking down. stairs Description 6 training stairs Device Used LBQC RUE Comments -pt demos recip both hands on one rail up/down, ea rail x1 -cues for upright posture without leaning forward excessively for both hands on rail up down recip x2 ea rail up/down recip with one rail x2 ea rail; pt ges from recip to step to descending last three steps w/ cues for neutral foot and upright posture. Neuro Re-Education Treatment Balance Activities // bars Details progresses from // bars w/ LBQC to out of // bars for hurdles only Equipment 6 hurdles x6, therapads, GB Comments 1. therapads varying firmness 10 ft x 2 2. hurdles 10 ft x 6 (prog from in // bars to out) 3. therapads w/ hurdles x4 cues for upright posture, gluteal activation, distant focal point Physical Therapy Assessment Goals 3 Impairment LEFS Impairment On eval: 15/80 Short Term Goal (STG Pt will score at least 30/80 on LEFS in order to ) improve functional mobility. (progressing) 06/23/25:per pt report STG Duration 07/07/25 Graphic Manager Goal (LTG) Pt will score at least 50/80 on LEFS in order to improve functional mobility. (progressing) 06/23/25: per pt report LTG Duration 08/18/25 2 Impairment Sit<>stand Impairment difficult sit<>stand with increased time d/t pain Senior Living Goal (LTG) Pt will perform at least 11 on 30s STS test without use of UEs in order to perform within norms for age range and improve functional mobility. (progressing) 06/23/25: pt able to complete 7 without the use of UE. LTG Duration 08/18/25 1 Impairment Stairs Impairment Unable to negotiate ~12 stairs down to basement Graphic Manager Goal (LTG) Pt will ascend and descend 12x6 stairs with 0-1 HR with reciprocal pattern ind. (progressing) 06/23/25: Pt able to complete 4 steps with one rail this date, demos decreased stability through R LE. LTG Duration 08/18/25 Assessment Summary Assessment Radha demonstrates reciprocal gait up/down 6 steps with B SUPERVISOR FISH PROCESSING on single rail. She is progressed with cues for upright posture and neutral foot positioning to reciprocal gait up/down with one SUPERVISOR FISH PROCESSING with improved confidence but self-modifies to step-to last three steps descending due to apprehension. With 6 hurdles and unstable surfaces she demonstrates increasingly improved confidence with increased hip flexion and foot clearance. Pt encouraged to focus on eccentric control with sit to stands throughout ADLs, and consider removing one pillow from chair as tolerated for improved LE strength for carryover into functional mobility. Physical Therapy Plan Frequency and Duration Frequency of 2x/Week Treatment Duration of 12 treatment (weeks) Plan of Care Start 05/26/25 Date Plan of Care End 08/18/25 Date Therapeutic Interventions Therapeutic Balance Training,Gait Training,Home Exercise Program, Interventions Joint Mobilizations,Manual Therapy,Neuromuscular Re- education,Orthotic/Prosthetic Management,Patient/ Caregiver Education,Self-Care/Home Management,Soft Tissue Mobilization,Therapeutic Activities,Therapeutic Exercises Modalities Cold Pack/Ice Massage,Hot Packs,Iontophoresis, Ultrasound Next Visit Focus/Plan Next Note Type Treatment Note Next Visit Plan Review new HEP, sitting or standing hip exercises
--- NOTE | 2025-07-07 16:24 | PT.OTN ---
Current Diagnoses Pain in unspecified hip (07/07/25) Pain in unspecified knee (07/07/25) Radiculopathy, lumbar region (07/07/25) Dorsalgia, unspecified (07/07/25) Physical Therapy Treatment Note PT OP: Lower Back/Lower Extremity Start: 05/26/25 13:06 Freq: Status: Active Protocol: Document 07/07/25 15:19 LEONOR (Rec: 07/07/25 16:24 LEONOR [id number]) Out-Patient Physical Therapy Visit Information Visit Information Visit Type Treatment Note Visit Start Time 15:15 Visit Stop Time 16:00 Visit Number 8 Number of PREFORM MACHINE OPERATOR Visits 0 Progress Note Due 07/23/25 OP-PT Subjective Patient Comments Patient Comments Patient reports she was on vacation last week and her back has been feeling much better recently. She reports she has no pain at the moment or during the last week. She reports she still feels her legs are still a bit weak and she recently stopped using the cane. She would like to continue with PT for a little more to work on her LE strength and with getting into and out of her car, squatting down to garden, and stair negotiation. Therapeutic Exercises Sitting Exercises Hip abduction machine Side bilateral Resistance 30# Equipment Used hip abduction machine Reps/Minutes 3x10 Standing Exercises Lateral band walk Side bilateral Resistance level 1 Equipment Used band Reps/Minutes 6x down and back in parallel bars Standing hip hinge Side bilateral Resistance 10# Equipment Used 10# dumbell Reps/Minutes 2x10 Comments cues for posterior hip translation and tapping weight to 6 step Other Exercises Step ups Side bilateral Equipment Used steps: 6 Reps/Minutes 3x10 each side Comments Single arm UE support STS Other Exercise Name sit to stand - UE support prn Reps/Minutes 3x10 Comments tap to chair Physical Therapy Assessment Goals 3 Impairment LEFS Impairment On eval: 15/80 Short Term Goal (STG Pt will score at least 30/80 on LEFS in order to ) improve functional mobility. (progressing) 06/23/25:per pt report STG Duration 07/07/25 Relay Worker Goal (LTG) Pt will score at least 50/80 on LEFS in order to improve functional mobility. (progressing) 06/23/25: per pt report LTG Duration 08/18/25 2 Impairment Sit<>stand Impairment difficult sit<>stand with increased time d/t pain Halfway Goal (LTG) Pt will perform at least 11 on 30s STS test without use of UEs in order to perform within norms for age range and improve functional mobility. (progressing) 06/23/25: pt able to complete 7 without the use of UE. LTG Duration 08/18/25 1 Impairment Stairs Impairment Unable to negotiate ~12 stairs down to basement Relay Worker Goal (LTG) Pt will ascend and descend 12x6 stairs with 0-1 HR with reciprocal pattern ind. (progressing) 06/23/25: Pt able to complete 4 steps with one rail this date, demos decreased stability through R LE. LTG Duration 08/18/25 Assessment Summary Assessment Patient presenting to PT with near-resolution in low back and radicular symptoms. Because of this, treatment focused on gross LE compound strengthening. Patient tolerated treatment well with no increases in pain levels. Plan to continue with PT for two more sessions and discharge after her second appointment next week. Physical Therapy Plan Frequency and Duration Frequency of 2x/Week Treatment Duration of 12 treatment (weeks) Plan of Care Start 05/26/25 Date Plan of Care End 08/18/25 Date Next Visit Focus/Plan Next Note Type Treatment Note Next Visit Plan Continue with focus on compound LE strength for two sessions and discharge plan of care at end of next week .
--- NOTE | 2025-07-17 15:55 | PT.OTN ---
Current Diagnoses Pain in unspecified hip (07/17/25) Pain in unspecified knee (07/17/25) Radiculopathy, lumbar region (07/17/25) Dorsalgia, unspecified (07/17/25) Physical Therapy Treatment Note PT OP: Lower Back/Lower Extremity Start: 05/26/25 13:06 Freq: Status: Active Protocol: Document 07/17/25 10:59 NBM (Rec: 07/17/25 11:26 NBM Laptop) Out-Patient Physical Therapy Visit Information Visit Information Visit Type Treatment Note Visit Start Time 10:55 Visit Stop Time 11:37 Visit Number 9 Number of MOTORCYCLE REPAIR SHOP SUPERVISOR Visits 1 Progress Note Due 07/23/25 OP-PT Subjective Patient Comments Patient Comments Radha reports she was doing exercises until on vacation . She's doing stairs with one handrail now. The leg machine with weights seemed to aggravate her osteopaenia and pain in the L groin so she does not want to do it again. She stopped using [facility] in [place] two weeks ago and hasn't used it since, but may use it tonight for community ambulation. She feels that she's gotten weaker and gained weight. Going on vacation was not the best. Therapeutic Exercises Other Exercises STS Other Exercise Name sit to stand - UE support prn Reps/Minutes x10 Comments increased fatigue today, poor eccentric control, cues for gluteal activatio Therapeutic Activity Therapeutic Activity body mechanics Name ADLs and Enter Inside Sales Advertising Executive's side Reps/Minutes 15 Comments 1. ADLs Pt reports doing house and yard work except for vacuuming and running out of time for her HEP. HO given for ADLs Do/Don't with emphasis on one foot up for standing at kitchen counter/doing dishes and facing work and standing closely for sweeping. Edu pt to carry objects close to chest for stairs. 2. In/out of [place] truck Pt demos R LE into truck w/ L LE remaining on ground, avoiding step; holds steering wheel to pull in. L car door handle is loose pending parts replacement. -Pt encouraged to use step (avoids due to R LE buckling prior to PT) with edu for quad strength improvement. W/ C[employer] pt used RLE on step to enter truck x2 and has improved confidence. -Edu to pt re: option for step stool with handle/rope to pull in. Gait Training Gait Activity stairs Description 4 x6 training stairs Device Used One rail support (R ascending, L descending) Comments up/down recip with one rail x6 ea rail; cues for neutral foot and upright posture. -w/ crate x3 ea, cues for neutral foot to reduce L groin aggravation. Self-Care/Home Management Treatment Education Patient Education Body Mechanics,Home Exercise Program,Pain Management Other Education HEP verbal review with discussion for improving consistency at home - pt can perform on couch during day or bed in evening. Education for how body mechanics with descending stairs with object carry and entering Truck with RLE skipping step may be contributing to L groin pain. Physical Therapy Assessment Goals 3 Impairment LEFS Impairment On eval: 15/80 Short Term Goal (STG Pt will score at least 30/80 on LEFS in order to ) improve functional mobility. (progressing) 06/23/25:per pt report STG Duration 07/07/25 Environmental Education Specialist Goal (LTG) Pt will score at least 50/80 on LEFS in order to improve functional mobility. (progressing) 06/23/25: per pt report LTG Duration 08/18/25 2 Impairment Sit<>stand Impairment difficult sit<>stand with increased time d/t pain Retirement Goal (LTG) Pt will perform at least 11 on 30s STS test without use of UEs in order to perform within norms for age range and improve functional mobility. (progressing) 06/23/25: pt able to complete 7 without the use of UE. LTG Duration 08/18/25 1 Impairment Stairs Impairment Unable to negotiate ~12 stairs down to basement Environmental Education Specialist Goal (LTG) Pt will ascend and descend 12x6 stairs with 0-1 HR with reciprocal pattern ind. (progressing) 06/23/25: Pt able to complete 4 steps with one rail this date, demos decreased stability through R LE. 07/17/25: Met. LTG Duration 08/18/25 (Met 07/17/25) Assessment Summary Assessment Radha presents fatigued today following recent vacation without LBQC and lack of AD use since, poor sleep and ongoing blood workup for kidneys requiring increased travel this week. Treatment focus today on stairs without and with object carry and on body mechanics for safely getting into pt's [employer] vehicle, and possible aggravating factors for L groin pain are identified with pt's body mechanics. Radha meets Stairs LTG today and demonstrates greatly improved confidence and safety ambulating up and down stairs reciprocally with one rail, but does require cues and education when carrying object not to turn feet towards left to avoid ambulating nearly laterally downstairs, then demonstrates improved confidence ambulating with neutral feet carrying object downstairs. Pt encouraged to use step (avoids due to R LE buckling prior to PT) with edu for quad strength improvement. W/ [employer] pt used RLE on step to enter truck x2 and has improved confidence, and educated re: option of step stool with rope/handle to pull in. Discussion of possible discharge after next visit. Physical Therapy Plan Frequency and Duration Frequency of 2x/Week Treatment Duration of 12 treatment (weeks) Plan of Care Start 05/26/25 Date Plan of Care End 08/18/25 Date Therapeutic Interventions Therapeutic Balance Training,Gait Training,Home Exercise Program, Interventions Joint Mobilizations,Manual Therapy,Neuromuscular Re- education,Orthotic/Prosthetic Management,Patient/ Caregiver Education,Self-Care/Home Management,Soft Tissue Mobilization,Therapeutic Activities,Therapeutic Exercises Modalities Cold Pack/Ice Massage,Hot Packs,Iontophoresis, Ultrasound Next Visit Focus/Plan Next Note Type Treatment Note Next Visit Plan Continue with focus on compound LE strength for two sessions and discharge plan of care at end of next week .
--- NOTE | 2025-07-22 15:17 | PT.OTN ---
Current Diagnoses Pain in unspecified hip (07/22/25) Pain in unspecified knee (07/22/25) Radiculopathy, lumbar region (07/22/25) Dorsalgia, unspecified (07/22/25) Physical Therapy Treatment Note PT OP: Lower Back/Lower Extremity Start: 05/26/25 13:06 Freq: Status: Active Protocol: Document 07/22/25 14:34 SP (Rec: 07/22/25 15:47 SP [id number]) Out-Patient Physical Therapy Visit Information Visit Information Visit Type Treatment Note Visit Start Time 14:34 Visit Stop Time 15:17 Visit Number 10 Number of COKE CRANE OPERATOR Visits 2 Progress Note Due 07/23/25 Precautions Precautions Reports osteopenia in L leg. OP-PT Subjective Patient Comments Patient Comments Pt reports she was really sore in inner thigh on L since using the machine, 30 was to much, 20 might be ok . Patient Questionnaires Lower Extremity Functional Scale LEFS Score 24 Functional Tests Timed Up and Go (TUG) Score 18, 18, 16 Comments slow pacing, stride, no AD Therapeutic Exercises Standing Exercises Lateral band walk Standing Exercise added to HEP with HO Name Side bilateral Resistance AROM Equipment Used 6 step with 1 UE HR L and 2 HR R Reps/Minutes 10 reps x2 L, 10 and 8 reps R Comments cued TKE into extension and slow controlled descend Standing hip hinge Standing Exercise added to HEP with HO Name Side bilateral Resistance AROM Equipment Used 6 step Reps/Minutes 10 reps x2 sets Comments cued TKE into extension and slow controlled descend Other Exercises STS Resistance AROM Equipment Used arms across chest Reps/Minutes 30 sec STS 8 reps Comments improved controlled descend, cued x1 full stand Therapeutic Activity Therapeutic Activity TUG Reps/Minutes 18s, 18,16s Self-Care/Home Management Treatment Education Patient Education Body Mechanics,Home Exercise Program,Pain Management, Posture,Safety Other Education Ed for use of 4WW when out longer distances not just football game but also walking to DI appts in hospital for energy conservation. add progressing resisted clamshells, step downs. Physical Therapy Assessment Goals 3 Impairment LEFS Impairment On eval: 15/80 Short Term Goal (STG Pt will score at least 30/80 on LEFS in order to ) improve functional mobility. (progressing) 06/23/25:per pt report 07/22/25: score 24 STG Duration 07/07/25 progressing 07/22/25 Senior Care Goal (LTG) Pt will score at least 50/80 on LEFS in order to improve functional mobility. (progressing) 06/23/25: per pt report 07/22/25: score 24 LTG Duration 08/18/25 progressing 07/22/25 2 Impairment Sit<>stand Impairment difficult sit<>stand with increased time d/t pain Senior Care Goal (LTG) Pt will perform at least 11 on 30s STS test without use of UEs in order to perform within norms for age range and improve functional mobility. (progressing) 06/23/25: pt able to complete 7 without the use of UE. 07/22/25: 8 reps in 30 sec, arms across chest and TUG 17 sec average (no AD) LTG Duration 08/18/25 progressing 07/22/25 1 Impairment Stairs Impairment Unable to negotiate ~12 stairs down to basement Building Economist Goal (LTG) Pt will ascend and descend 12x6 stairs with 0-1 HR with reciprocal pattern ind. (progressing) 06/23/25: Pt able to complete 4 steps with one rail this date, demos decreased stability through R LE. 07/17/25: Met. LTG Duration 08/18/25 (Met 07/17/25) Assessment Summary Assessment Pt is making slow gains in strength. Demonstrates weakness on R LE lateral step up and down on 6step which reports is still challenging getting into [place] trunk but is able to do with BUE support. Initiated seated and standing quad, glut and hip abd strengthening HEP today with HOs. Cues for proper form and UE support needed. Ed for use of 4WW when out longer distances not just football game but also walking to DI appts in hospital for energy conservation . Physical Therapy Plan Frequency and Duration Frequency of 2x/Week Treatment Duration of 12 treatment (weeks) Plan of Care Start 05/26/25 Date Plan of Care End 08/18/25 Date Therapeutic Interventions Therapeutic Balance Training,Gait Training,Home Exercise Program, Interventions Joint Mobilizations,Manual Therapy,Neuromuscular Re- education,Orthotic/Prosthetic Management,Patient/ Caregiver Education,Self-Care/Home Management,Soft Tissue Mobilization,Therapeutic Activities,Therapeutic Exercises Modalities Cold Pack/Ice Massage,Hot Packs,Iontophoresis, Ultrasound Next Visit Focus/Plan Next Note Type Treatment Note Next Visit Plan Continue with focus on compound LE strength for two sessions, continue LE strengthening, gait distance endurance and balance progression for increased confidence with LRAD 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
--- NOTE | 2025-07-23 16:34 | PT.OPPN ---
Current Diagnoses Pain in unspecified hip (07/22/25) Pain in unspecified knee (07/22/25) Radiculopathy, lumbar region (07/22/25) Dorsalgia, unspecified (07/22/25) Physical Therapy Progress Note PT OP: Lower Back/Lower Extremity Start: 05/26/25 13:06 Freq: Status: Active Protocol: Document 07/23/25 16:22 LEONOR (Rec: 07/23/25 16:34 LEONOR [id number]) Out-Patient Physical Therapy Visit Information Visit Information Visit Type Progress Note Visit Start Time 14:34 Visit Stop Time 15:17 Visit Number 10 Number of CONCRETE ANALYST Visits 2 Progress Note Due 08/21/25 OP-PT Subjective Patient Comments Patient Comments Patient reports she is not confident in her ability to walk independently without falling. She would like to continue PT to address this as well as improve strength . Functional Tests Timed Up and Go (TUG) Score 18, 18, 16 Comments slow pacing, stride, no AD Physical Therapy Assessment Goals 4 Impairment General balance/ mobility Short Term Goal (STG Patient will demonstrate an increase a reduction in TUG ) time to 15 seconds in order to better function with mobility around her home and reduce her falls risk. STG Duration 3 weeks Assistant Chief Of Police Goal (LTG) Patient will demonstrate an increase a reduction in TUG time to 12 seconds in order to better function with mobility around her home and reduce her falls risk. LTG Duration 6 weeks 3 Impairment LEFS Impairment On eval: 15/80 Short Term Goal (STG Pt will score at least 30/80 on LEFS in order to ) improve functional mobility. (progressing) 06/23/25:per pt report 07/22/25: score 24 STG Duration 07/07/25 progressing 07/22/25 Senior Care Goal (LTG) Pt will score at least 50/80 on LEFS in order to improve functional mobility. (progressing) 06/23/25: per pt report 07/22/25: score 24 LTG Duration 08/18/25 progressing 07/22/25 2 Impairment Sit<>stand Impairment difficult sit<>stand with increased time d/t pain Senior Care Goal (LTG) Pt will perform at least 11 on 30s STS test without use of UEs in order to perform within norms for age range and improve functional mobility. (progressing) 06/23/25: pt able to complete 7 without the use of UE. 07/22/25: 8 reps in 30 sec, arms across chest and TUG 17 sec average (no AD) LTG Duration 08/18/25 progressing 07/22/25 Assessment Summary Assessment Patient presents to PT after 9 sessions for low back pain and general balance deficits. Patient has made improvements with gross LE strength (see measures: 30sSTS), but continues to have deficits in this area ( see above) as well as with general balance/ mobility ( see measures: TUG). Additionally, her TUG score places her in a falls risk category and she will continue to benefit from PT to address remaining deficits and reduce falls risk. 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
--- NOTE | 2025-07-29 13:50 | PT.OTN ---
Current Diagnoses Pain in unspecified hip (07/29/25) Pain in unspecified knee (07/29/25) Radiculopathy, lumbar region (07/29/25) Dorsalgia, unspecified (07/29/25) Physical Therapy Treatment Note PT OP: Lower Back/Lower Extremity Start: 05/26/25 13:06 Freq: Status: Active Protocol: Document 07/29/25 13:02 SP (Rec: 07/29/25 13:15 SP [id number]) Out-Patient Physical Therapy Visit Information Visit Information Visit Type Treatment Note Visit Start Time 13:02 Visit Stop Time 13:50 Visit Number 11 Number of VISITOR SERVICES SPECIALIST Visits 3 Progress Note Due 08/21/25 Precautions Precautions Reports osteopenia in L leg. OP-PT Subjective Patient Comments Patient Comments Pt reports with the rain hasn't been so didn't get to do the stepping exercises, has outside stairs only. 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 Reps/Minutes 10 reps Comments cues for repeated hip flexion to support strength step up get in [place] Resisted marching Side bilateral Resistance Tb #5 around forefoot Equipment Used PRN rail Reps/Minutes 10 reps each foot alternating Other Exercises Step ups Other Exercise Name 1. back stepping 2. lateral stepping Side bilateral Equipment Used steps: 6 Reps/Minutes 1. x10 each side 2. 2x10 each side Comments Single arm UE support back stepping, BUE support lateral stepping STS Resistance AROM Equipment Used arms across chest Reps/Minutes 30 sec STS 8 reps Comments improved controlled descend, cued x1 full stand Therapeutic Activity Therapeutic Activity body mechanics Name ADLs and Enter Bridal Stylist Sales Consultant's side Reps/Minutes 3 reps Comments 1. stepping up on running board 13 height 2. trunk interior ishan drivers side 22 height -grasp steering wheel LUE, currently lifts RLE onto 22 height trunk ishan with RUE then backs up to seat while holding door handle with LUE and does heel raise on LLE to get buttocks onto seat, pulls steering wheel to get LLE onto running board and scoots back further into seat. - trialed stepping up with LLE onto running board while support self with UEs RUE on steering wheel, but she doesn't trust LLE might buckle, has osteopenia. Neuro Re-Education Treatment Balance Activities Dynamic Stepping Details fwd & bkwd with HTs, [place] (lateral) Surface indoors and outside pavement Equipment with out and with metronome: fwd 96bpm, bwd 88bpm Reps/Duration 40 ft 2 lengths each Comments cued for COG over [place], initially slows pacing and little sways but no LOB but improved with metronome use and cues for scap and posture alignment improved stability. Physical Therapy Assessment Goals 4 Impairment General balance/ mobility Short Term Goal (STG Patient will demonstrate an increase a reduction in TUG ) time to 15 seconds in order to better function with mobility around her home and reduce her falls risk. 07/23/25: progressin, 18, 16 sec. STG Duration 3 weeks progressing 07/23/25 Business Process Associate Goal (LTG) Patient will demonstrate an increase a reduction in TUG time to 12 seconds in order to better function with mobility around her home and reduce her falls risk. 07/23/25: progressin, 18, 16 sec. LTG Duration 6 weeks progressing 07/23/25 3 Impairment LEFS Impairment On eval: 15/80 Short Term Goal (STG Pt will score at least 30/80 on LEFS in order to ) improve functional mobility. (progressing) 06/23/25:per pt report 07/22/25: score 24 STG Duration 07/07/25 progressing 07/22/25 Business Process Associate Goal (LTG) Pt will score at least 50/80 on LEFS in order to improve functional mobility. (progressing) 06/23/25: per pt report 07/22/25: score 24 LTG Duration 08/18/25 progressing 07/22/25 2 Impairment Sit<>stand Impairment difficult sit<>stand with increased time d/t pain Business Process Associate Goal (LTG) Pt will perform at least 11 on 30s STS test without use of UEs in order to perform within norms for age range and improve functional mobility. (progressing) 06/23/25: pt able to complete 7 without the use of UE. 07/22/25: 8 reps in 30 sec, arms across chest and TUG 17 sec average (no AD) LTG Duration 08/18/25 progressing 07/22/25 Assessment Summary Assessment Pt improved balance stability with cues for posture and use of metronome able to progress to allow head turns for safety scanning parkinglot to car. Time spend today for balance and LE strengthening to improve functional mobility in/out car. Physical Therapy Plan Frequency and Duration Frequency of 2x/Week Treatment Duration of 12 treatment (weeks) Plan of Care Start 05/26/25 Date Plan of Care End 08/18/25 Date Therapeutic Interventions Therapeutic Balance Training,Gait Training,Home Exercise Program, Interventions Joint Mobilizations,Manual Therapy,Neuromuscular Re- education,Orthotic/Prosthetic Management,Patient/ Caregiver Education,Self-Care/Home Management,Soft Tissue Mobilization,Therapeutic Activities,Therapeutic Exercises Modalities Cold Pack/Ice Massage,Hot Packs,Iontophoresis, Ultrasound Next Visit Focus/Plan Next Note Type Treatment Note Next Visit Plan REcheck hip flexion strengthening. 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
--- NOTE | 2025-08-07 12:28 | PT.OTN ---
Current Diagnoses Pain in unspecified hip (08/07/25) Pain in unspecified knee (08/07/25) Radiculopathy, lumbar region (08/07/25) Dorsalgia, unspecified (08/07/25) Physical Therapy Treatment Note PT OP: Lower Back/Lower Extremity Start: 05/26/25 13:06 Freq: Status: Active Protocol: Document 08/07/25 11:41 LEONOR (Rec: 08/07/25 12:28 LEONOR [id number]) Out-Patient Physical Therapy Visit Information Visit Information Visit Type Treatment Note Visit Start Time 11:45 Visit Stop Time 12:25 Visit Number 12 Number of DAIRY POWDER MIXER OPERATOR Visits 0 Progress Note Due 08/21/25 OP-PT Subjective Patient Comments Patient Comments Patient reports she has not been doing hip flexion exercises because her hip hurts a little. Therapeutic Exercises Standing Exercises Posterior tap downs Reps/Minutes 2x10 each side Comments Unilateral HR support Step ups Equipment Used 6 step Reps/Minutes 3x10 Comments Unilateral HR support Sit to stands Reps/Minutes 3x10 Resisted marching Resistance 4# Reps/Minutes 2x10 each side Lateral band walk Side bilateral Equipment Used 6 step with 1 UE HR L and 2 HR R Comments 6x10 each direction Standing hip hinge Resistance No resistance Reps/Minutes 3x10 Physical Therapy Assessment Goals 4 Impairment General balance/ mobility Short Term Goal (STG Patient will demonstrate an increase a reduction in TUG ) time to 15 seconds in order to better function with mobility around her home and reduce her falls risk. 07/23/25: progressin, 18, 16 sec. STG Duration 3 weeks progressing 07/23/25 Retirement Goal (LTG) Patient will demonstrate an increase a reduction in TUG time to 12 seconds in order to better function with mobility around her home and reduce her falls risk. 07/23/25: progressin, 18, 16 sec. LTG Duration 6 weeks progressing 07/23/25 3 Impairment LEFS Impairment On eval: 15/80 Short Term Goal (STG Pt will score at least 30/80 on LEFS in order to ) improve functional mobility. (progressing) 06/23/25:per pt report 07/22/25: score 24 STG Duration 07/07/25 progressing 07/22/25 Breaster Goal (LTG) Pt will score at least 50/80 on LEFS in order to improve functional mobility. (progressing) 06/23/25: per pt report 07/22/25: score 24 LTG Duration 08/18/25 progressing 07/22/25 2 Impairment Sit<>stand Impairment difficult sit<>stand with increased time d/t pain Breaster Goal (LTG) Pt will perform at least 11 on 30s STS test without use of UEs in order to perform within norms for age range and improve functional mobility. (progressing) 06/23/25: pt able to complete 7 without the use of UE. 07/22/25: 8 reps in 30 sec, arms across chest and TUG 17 sec average (no AD) LTG Duration 08/18/25 progressing 07/22/25 Assessment Summary Assessment Treatment focused on LE compound strengthening with limited UE support for proprioceptive challenge. Patient tolerated treatment well with no increases in pain levels. Plan next session to follow up on home exercises and continue with plan of care. 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
--- NOTE | 2025-08-11 14:32 | PT.OTN ---
Current Diagnoses Pain in unspecified hip (08/11/25) Pain in unspecified knee (08/11/25) Radiculopathy, lumbar region (08/11/25) Dorsalgia, unspecified (08/11/25) Physical Therapy Treatment Note PT OP: Lower Back/Lower Extremity Start: 05/26/25 13:06 Freq: Status: Active Protocol: Document 08/11/25 13:50 SP (Rec: 08/11/25 14:35 SP [id number]) Out-Patient Physical Therapy Visit Information Visit Information Visit Type Treatment Note Visit Start Time 13:50 Visit Stop Time 14:32 Visit Number 13 Number of HOSPITAL WELLNESS COORDINATOR Visits 1 Progress Note Due 08/21/25 Precautions Precautions Reports osteopenia in L leg. OP-PT Subjective Patient Comments Patient Comments Pt reports found a magazine article about sciatic pain relief and stretches can do to help. And another about vertigo can do self help techniques. Therapeutic Exercises Supine Exercises PIriformis Stretch Supine Exercise Name Harrison HEP Side bilateral Resistance PROM Reps/Minutes 30 sec Comments gentle stretch DKTC Supine Exercise Name HEP reviewed Side bilateral Equipment Used BUEs hold knees Reps/Minutes 1 min Comments positive results TA activation Supine Exercise Name PPT Side bilateral Reps/Minutes x10 each Comments VC for breathing and keeping C muscles relaxed - HEP review Sitting Exercises Thoracic Rotation Sitting Exercise Harrison HEP Name Side bilateral Resistance AROM Equipment Used arms across chest Reps/Minutes 10 reps each side Comments panfree slow range Standing Exercises Hamstring Stretch Standing Exercise Harrison HEP Name Side bilateral Equipment Used contact rail, foot on floor or on 2nd step Reps/Minutes 30sec Comments straight back Other Exercises Quadruped Cat/cow Other Exercise Name Harrison HEP Equipment Used BLEs over elevated portable bench as in her article Reps/Minutes 60 sec Comments cued breath Therapeutic Activity Therapeutic Activity on/off floor Name trialed Reps/Minutes 2 reps 1 use chair for support then 2nd pushing from floor/walk UEs up legs Comments Skilled cues for body positioning needed to complete, felt more confident can get off floor and not fear if falling now after performing in PT with cues. Discussed performing her HEP on floor for more functional strength, pt agreed. body mechanics Name picking up crate and 5# as though lift weeding yard work. Comments cues hip hinge. Physical Therapy Assessment Goals 4 Impairment General balance/ mobility Short Term Goal (STG Patient will demonstrate an increase a reduction in TUG ) time to 15 seconds in order to better function with mobility around her home and reduce her falls risk. 07/23/25: progressin, 18, 16 sec. STG Duration 3 weeks progressing 07/23/25 Roof Foreman Goal (LTG) Patient will demonstrate an increase a reduction in TUG time to 12 seconds in order to better function with mobility around her home and reduce her falls risk. 07/23/25: progressin, 18, 16 sec. LTG Duration 6 weeks progressing 07/23/25 3 Impairment LEFS Impairment On eval: 15/80 Short Term Goal (STG Pt will score at least 30/80 on LEFS in order to ) improve functional mobility. (progressing) 06/23/25:per pt report 07/22/25: score 24 STG Duration 07/07/25 progressing 07/22/25 Senior Living Goal (LTG) Pt will score at least 50/80 on LEFS in order to improve functional mobility. (progressing) 06/23/25: per pt report 07/22/25: score 24 LTG Duration 08/18/25 progressing 07/22/25 2 Impairment Sit<>stand Impairment difficult sit<>stand with increased time d/t pain Senior Living Goal (LTG) Pt will perform at least 11 on 30s STS test without use of UEs in order to perform within norms for age range and improve functional mobility. (progressing) 06/23/25: pt able to complete 7 without the use of UE. 07/22/25: 8 reps in 30 sec, arms across chest and TUG 17 sec average (no AD) LTG Duration 08/18/25 progressing 07/22/25 Assessment Summary Assessment Tx focused on Harrison article on ROM ther ex that can help with reduction in pain for sciatica. Skilled cues for set up and proper from but that many of article exercises she is already doing as her HEP in PT. Incorportated functional mobility instruction today getting on and off the floor so increased confidence, suggested performing HEP on the floor to continue full body strength. Discussed continue resisted ther ex performed last tx with her PT to continue strength and supports progression balance. Physical Therapy Plan Frequency and Duration Frequency of 2x/Week Treatment Duration of 12 treatment (weeks) Plan of Care Start 05/26/25 Date Plan of Care End 08/18/25 Date Therapeutic Interventions Therapeutic Balance Training,Gait Training,Home Exercise Program, Interventions Joint Mobilizations,Manual Therapy,Neuromuscular Re- education,Orthotic/Prosthetic Management,Patient/ Caregiver Education,Self-Care/Home Management,Soft Tissue Mobilization,Therapeutic Activities,Therapeutic Exercises Modalities Cold Pack/Ice Massage,Hot Packs,Iontophoresis, Ultrasound Next Visit Focus/Plan Next Visit Plan Continue with focus on compound LE strengthening, gait distance endurance and balance progression for increased confidence with LRAD 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 Recheck performing supine HEP on floor.
--- NOTE | 2025-08-14 15:29 | PT.OPDS ---
Current Diagnoses Pain in unspecified hip (08/14/25) Pain in unspecified knee (08/14/25) Radiculopathy, lumbar region (08/14/25) Dorsalgia, unspecified (08/14/25) Visit Care Team Role Provider Type Serg Avalos MD Attending Provider Physician Family Provider Primary Care Provider Referring Provider Specialty: Family Practice Address: [address] [place] [address], [address], [facility] Email: [email or web address] Visit Number Visit Number 14 Discharge Summary PT OP: Lower Back/Lower Extremity Start: 05/26/25 13:06 Freq: Status: Active Protocol: Document 08/14/25 14:30 LEONOR (Rec: 08/14/25 15:28 LEONOR [id number]) Out-Patient Physical Therapy Visit Information Visit Information Visit Type Discharge Summary Visit Start Time 14:35 Visit Stop Time 15:15 Visit Number 14 Number of GRAINER MACHINE Visits 0 Progress Note Due 08/21/25 OP-PT Subjective Patient Comments Patient Comments Patient reports she feels she is doing well overall. She reports her GROC is 85%. She notes continued deficits with getting up off the ground. She notes improvement with walking capacity, and strength. Physical Therapy Assessment Goals 4 Impairment General balance/ mobility Short Term Goal (STG Patient will demonstrate an increase a reduction in TUG ) time to 15 seconds in order to better function with mobility around her home and reduce her falls risk. 07/23/25: progressin, 18, 16 sec. 08/14/2025: 13 STG Duration 3 weeks progressing 07/23/25 Medical Accounting Clerk Goal (LTG) Patient will demonstrate an increase a reduction in TUG time to 12 seconds in order to better function with mobility around her home and reduce her falls risk. 07/23/25: progressin, 18, 16 sec. 08/14/2025: 13 LTG Duration 6 weeks progressing 07/23/25 3 Impairment LEFS Impairment On eval: 15/80 Short Term Goal (STG Pt will score at least 30/80 on LEFS in order to ) improve functional mobility. (progressing) 06/23/25:per pt report 07/22/25: score 24 Met - 08/14/2025: 34 STG Duration 07/07/25 progressing 07/22/25 Medical Accounting Clerk Goal (LTG) Pt will score at least 50/80 on LEFS in order to improve functional mobility. (progressing) 06/23/25: per pt report 07/22/25: score 24 08/14/2025: 34 LTG Duration 08/18/25 progressing 07/22/25 2 Impairment Sit<>stand Impairment difficult sit<>stand with increased time d/t pain Medical Accounting Clerk Goal (LTG) Pt will perform at least 11 on 30s STS test without use of UEs in order to perform within norms for age range and improve functional mobility. (progressing) 06/23/25: pt able to complete 7 without the use of UE. 07/22/25: 8 reps in 30 sec, arms across chest and TUG 17 sec average (no AD) 08/14/2025: 9 reps LTG Duration 08/18/25 progressing 07/22/25 Assessment Summary Assessment Patient presenting to PT after 13 visits for low back pain and general strength and balance deficits. Patient has made improvements with function and LE strength. Objective investigation revealed improvements in gross LE strength (see measures: 30sSTS), general balance/ mobility (see measures: TUG), and function (see measures: LEFS). Because of progress noted above, and patient confidence continuing home exercises independently, today will be patient's last formal PT session. Patient expressed interest in and was provided with information on local [facility] fall prevention program. Time was spent discussing progress in PT, discharge, and home exercises to continue with to continue progress independently. Physical Therapy Plan Frequency and Duration Frequency of 2x/Week Treatment Duration of 12 treatment (weeks) Plan of Care Start 05/26/25 Date Plan of Care End 08/18/25 Date Next Visit Focus/Plan Next Visit Plan Discharge plan of care
== END 2025-08-17 08:41 | disposition home or self-care (01) ==
LOC: PHYS 14:30
PROVIDERS: Family Provider Family Medicine; PCP Family Medicine; Referring Provider Family Medicine; Visit Provider Family Medicine
DX: M54.16 Radiculopathy, lumbar region (principal); M54.9 Dorsalgia, unspecified; M25.559 Pain in unspecified hip; M25.569 Pain in unspecified knee
CPT/HCPCS: 97110; 97112; 97116; 97140; 97162; 97530; 97535

== ENCOUNTER → 2025-09-01 09:46 | Outpatient (CLI) | payer MEDICARE, OTHER, SELFPAY ==
[2025-09-01 10:42] LABS: Hematocrit 36.6 % (36-46); Hemoglobin 12.9 g/dL (12.0-16.0)
[2025-09-01 11:05] LABS: Blood Urea Nitrogen 30 mg/dL (7-17); Calcium 9.6 mg/dL (8.4-10.2); Carbon Dioxide 28 mmol/L (22-32); Chloride 102 mmol/L (98-107); Estimated Glomerular Filt Rate 38 mL/min (>60); Glucose 150 mg/dL (70-99); HEMOLYSIS < 15 (0-50); Potassium 3.4 mmol/L (3.4-5.1); Sodium 139 mmol/L (137-145)
[2025-09-01 14:17] LABS: Protein (Total) Urine Random 6 mg/dL (0-12)
[2025-09-01 14:26] LABS: Microalbumi Creatinin Ratio Ur 15.0 ug/mg CR (<30)
== END ==
PROVIDERS: Family Provider Family Medicine; PCP Family Medicine; Referring Provider Family Medicine; Visit Provider Internal Medicine Nephrology
DX: N18.2 Chronic kidney disease, stage 2 (mild) (principal)
CPT/HCPCS: 36415; 80048; 82043; 82570; 84156; 85014; 85018